=== PATIENT | male | born 1945 | race Caucasian/White ===

== ENCOUNTER 2016-12-17 07:01 | Inpatient (IN) ==
[2016-12-17] MEDS ORDERED: NS 1,000 ML IV ONE ×3 (07:33→22:47)
[2016-12-17] MEDS ORDERED: ZOFRAN IV ONE (07:33)
--- NOTE | 2016-12-17 07:53 | PROVIDER DOCUMENTATION ---
HPI-General Adult - General Chief Complaint: Return/Recheck Stated Complaint: RETURN/RECHECK Time Seen by Provider: 12/17/16 07:03 Source: patient, family Allergies/Adverse Reactions: Patient Allergies Allergy/AdvReac Type Severity Reaction Status Date / Time No Known Allergies Allergy Verified 12/16/16 19:52 Home Medications: Home Medication List Medication Instructions Recorded Confirmed Last Taken Type Levofloxacin [Levaquin] 500 mg PO DAILY #7 tablet 12/16/16 12/17/16 12/16/16 23: 00 Rx Prednisone 15 mg PO BID 12/16/16 12/17/16 12/16/16 08:00 History - History of Present Illness -Gen Adult Nature of Presenting Problems: Pt was seen here last night and was diagnosed mild PNA. Reports he had SOB and shaking after discharged home. Reports PCP, Dr. Gann discontinued his pain and nerve pills after he took them for 2-3 weeks. Pt actually has been having withdrawal type of symptoms since then - shaking, not feeling well etc. Denies N /V/CP/LOC. Pt reports his only current meds is tapering Prednisone. Denies any significant PMHx. Location of Pain/Injury: reports: none Pain Radiation: reports: no radiation Quality of Pain: reports: none Severity: reports: moderate Onset/Duration: reports: 2 days ago Timing: reports: still present, getting worse Context/Activities at Onset: reports: none Modifying Factors: improves with: nothing Associated Symptoms: reports: anxiety, fatigue, malaise, shortness of breath. denies: cough, diarrhea, dizziness, nausea, syncope, vomiting, weakness Similar Symptoms Previously?: Yes Recently seen or treated by another doctor?: Yes Review of Systems - Adult - REVIEW OF SYSTEMS - ADULT Constitutional: reports: see HPI, chills, fever, fatique Eyes: reports: no symptoms reported Ears, Nose, Mouth & Throat: reports: no symptoms reported Cardiovascular: reports: no symptoms reported. denies: chest pain Respiratory: reports: see HPI, shortness of breath. denies: cough, dyspnea on exertion, wheezing Gastrointestinal: reports: no symptoms reported Genitourinary: reports: no symptoms reported Musculoskeletal: reports: no symptoms reported Integumentary: reports: no symptoms reported Neurological: reports: see HPI Psychiatric: reports: no symptoms reported Endocrine: reports: no symptoms reported Hematologic/Lymphatic: reports: no symptoms reported Allergic/Immunologic: reports: no symptoms reported All Other Systems: Reviewed and Negative Past History - Adult - PAST MEDICAL HISTORY-ADULT Review of Records: reports: Old Records Reviewed, Nursing Assessment Review, Medications Reviewed, Social history reviewed & non-contributory. Major Childhood Illnesses: reports: denies history Cardiovascular: reports: HTN, hyperlipidemia - PRIOR SURGERIES/PROCEDURES Surgical/Procedure History: reports: none - IMMUNIZATION STATUS Childhood Immunizations: See Nurse Assessment Flu Vaccine: See Nurse Assessment Physical Exam-General - PHYSICAL EXAM-ADULT Initial Vital Signs Reviewed: Yes - CONSTITUTIONAL General Appearance: appears well, alert, no apparent distress, other (Pt looks tired and pale) - EYES Eyes: PERRL/EOMI - HEAD, EARS, NOSE, MOUTH & THROAT HENMT: normocephalic/atraumatic, moist mucous membranes - NECK Neck: non-tender, full range of motion, supple, normal inspection - RESPIRATORY Respiratory: chest non-tender, lungs clear, normal breath sounds, no pleuratic chest pain, no respiratory distress, no accessory muscle use - CARDIOVASCULAR Cardiovascular: normal peripheral pulses, regular rate, rhythm, no edema, no gallop, no JVD - GASTROINTESTINAL (ABDOMEN) Abdominal Exam: normal bowel sounds, non tender, soft, no organomegaly - MUSCULOSKELETAL Extremity: normal range of motion, non-tender, normal gait, normal inspection - SKIN Integumentary: normal color, normal turgor, warm/dry - NEUROLOGIC Neurologic: sr. director product management II-XII nml as tested, grossly normal, no motor/sensory deficits , abnormal gait - PSYCHIATRIC Psych/Mental Status: normal mood/affect, normal thought content, normal thought process, oriented x 3 Progress - PLAN OF CARE/RESULTS Progress/Plan/Lab Results: Vital Signs - 8 hr 12/17/16 07:12 Temperature 99.1 F Pulse Rate 119 H Respiratory Rate 20 Blood Pressure 124/69 O2 Sat by Pulse Oximetry 98 Orders Category Date Time Status Cardiac Monitoring DIRECTED Care 12/17/16 07:33 Active Saline Loc NOW Care 12/17/16 07:33 Active BLOOD CULTURE [BLDCUL] Stat Lab 12/17/16 07:33 Ordered CBC WITH ELECTRONIC DIFF [HEME] Stat Lab 12/17/16 07:33 Ordered CK PROFILE [SP CHEM] Stat Lab 12/17/16 07:33 Ordered COMPREHENSIVE METABOLIC PANEL [CHEM] Stat Lab 12/17/16 07:33 Ordered D-DIMER PL [COAG] Stat Lab 12/17/16 07:33 Ordered LIPASE [CHEM] Stat Lab 12/17/16 07:33 Ordered MAGNESIUM [CHEM] Stat Lab 12/17/16 07:33 Ordered PRO B-NATRIURETIC PEPTIDE Stat Lab 12/17/16 07:33 Ordered TROPONIN T Stat Lab 12/17/16 07:[address] W/POSS RFLX CULT [URINALYSIS] Stat Lab 12/17/16 07:33 Uncollected URINE DRUG SCREEN PL Stat Lab 12/17/16 07:33 Uncollected 0.9% Sodium Chloride Inj [Ns] 1,000 ml Med 12/17/16 07:33 Active IV 999 mls/hr Ondansetron [Zofran] Med 12/17/16 07:33 Discontinued 4 mg IV NOW ONE EKG [EKG] Stat Ther 12/17/16 07:33 Ordered Result Diagrams: 12/17/16 08:00 12/17/16 08:00 - EKG 1 EKG Read and Signed by:: Orin Metzger EKG Interpretation (*Must complete 3 of following elements*): Abnormal Rate: 120 Rhythm: Sinus tachy [place]: normal QRS: normal ND Interval: normal ST Wave: normal - CT/MRI 1 CT Study: Abdomen, Thorax Impression: Abnormal (L 4th and 5th rib fx. B/l lung base and EL infiltrates. Sigmoid diverticulitis.) Departure - Departure Date of Disposition Decision: 12/17/16 Time of Disposition Decision: 10:58 DIAGNOSIS: Pneumonia, Rib fractures, Diverticulitis Disposition: ADMITTED INPATIENT 09 Certified Medical Emergency: Emergent Condition: Stable Referrals and Follow-Ups: Artur Gann MD [Primary Care Provider] - - Critical Care Note This patient required my direct & personal management of CC.: No
[2016-12-17 08:10] LABS: MANUAL DIFF NEEDED? NO
--- NOTE | 2016-12-17 08:17 | EKG Report ---
Test Performed on : 12/17/2016 08:12:37 AM Test Reason : CHEST PAIN Blood Pressure : / mmHG Vent. Rate : 120 BPM Atrial Rate : 120 BPM P-R Int : 134 ms QRS Dur : 070 ms QT Int : 292 ms P-R-T Axes : 040 021 018 degrees QTc Int : 412 ms Sinus tachycardia. with premature atrial complexes. Otherwise normal ECG No previous ECGs available Unconfirmed Result
[2016-12-17 08:19] LABS: EOS# 0.17 X1000 (0.0-0.7); EOS% 1.7 % (0.0-10.0); HEMATOCRIT 36.6 % (42.0-52.0); HEMOGLOBIN 11.2 g/dL (14.0-18.0); IMM GRAN# 0.06 X1000 (0.0-0.04); IMM GRAN% 0.6 % (0.0-0.5); LYMPH# 1.84 X1000 (1.2-3.4); LYMPH% 18.2 % (20.5-51.1); MCH 21.8 PG (27-31); MCHC 30.6 g/dL (33-37); MCV 71.2 FL (81-99); MONO# 0.57 X1000 (0.11-0.59); MONO% 5.6 % (1.7-9.3); MPV 9.6 FL (7.4-10.4); NEUT% 72.9 % (42.2-75.2); PLT 287 X1000 (130-400); RBC 5.14 XMIL (4.7-6.1)
[2016-12-17 08:45] LABS: ALBUMIN 3.2 g/dL (3.5-5.0); CALCIUM 9.4 mg/dL (8.8-10.2); MAGNESIUM 1.9 mg/dL (1.5-2.7); POTASSIUM 4.4 mmol/L (3.5-5.1); TOTAL BILIRUBIN 0.4 mg/dL (0.20-1.00); TOTAL PROTEIN 7.3 g/dL (6.3-8.3)
[2016-12-17 09:29] LABS: URINE CULTURE PL NEEDED? NO
[2016-12-17 09:38] LABS: BILIRUBIN URINE NEGATIVE (NEGATIVE); BLOOD URINE TRACE (NEGATIVE); CLARITY SL. CLOUDY (CLEAR); COLOR YELLOW; GLUCOSE URINE NEGATIVE (NEGATIVE); LEUKOCYTES URINE NEGATIVE (NEGATIVE); NITRITE URINE NEGATIVE (NEGATIVE); PROTEIN URINE 1+(30 mg/dL) mg/dL (NEGATIVE); UROBILINOGEN URINE NORMAL
[2016-12-17 09:41] LABS: UR AMPHETAMINES QUAL NONE DETECTED (NONE DETECT); UR BARBITUATES QUAL NONE DETECTED (NONE DETECT); UR BENZODIAZEPIN QUAL NONE DETECTED (NONE DETECT); UR CANNABINOIDS QUAL NONE DETECTED (NONE DETECT); UR COCAINE QUAL NONE DETECTED (NONE DETECT); UR MDMA QUAL NONE DETECTED (NONE DETECT); UR METHADONE QUAL NONE DETECTED (NONE DETECT); UR METHAMPHETAMINE QUAL NONE DETECTED (NONE DETECT); UR OPIATES QUAL NONE DETECTED (NONE DETECT); UR OXYCODONE QUAL PRESUMPTIVE POSITIVE (NONE DETECT); UR PCP QUAL NONE DETECTED (NONE DETECT); UR TCA QUAL NONE DETECTED (NONE DETECT)
[2016-12-17 09:51] LABS: URINE EPITHELIAL CELLS <10 /HPF (<10); URINE RBC <10 /HPF (<10); URINE SOURCE CLEAN CATCH; URINE WBC <10 /HPF (<10)
--- NOTE | 2016-12-17 10:29 | Diag Imaging Result Doc PS360 ---
EXAM: ABD/PELVIS/PULM ARTERIES INDICATION: Hurting all over with elevated D-dimer COMPARISON: None. FINDINGS: CTA CHEST: There is excessive motion artifact at the lung bases, which limits fine details as well as sensitivity for detecting small distal pulmonary emboli. However, there is no definite filling defect to indicate pulmonary embolism. There is patchy aortic atherosclerotic calcification. There is no evidence of aortic dissection or aneurysm. There are a few calcified mediastinal and left hilar lymph nodes indicating prior granulomatous disease. There are a few other shotty noncalcified lymph nodes that are borderline prominent. There is bilateral pulmonary emphysema. There are fibrotic changes bilaterally with a basilar predominance. Superimposed airspace infiltrate at the lung bases as well as the lower aspect of the right upper lobe cannot be excluded. There are a few small scattered pulmonary nodules bilaterally. For reference, there is a pulmonary nodule in the right middle lobe that measures up to 5.9 mm on image 65 of series 7. Consider follow-up based on Fleischner Society criteria. There are no discrete pleural fluid collections and there is no pneumothorax. Review of the bony structures of the chest reveals nondisplaced fractures involving the anterior fourth and fifth ribs on the left. ABDOMEN/PELVIS: There are calcified granulomata in the spleen. There are few small renal cysts bilaterally. The kidneys are grossly unremarkable, otherwise. The gallbladder is grossly unremarkable. There is no evidence of appendicitis. Urinary bladder is nondistended. There is moderate diverticulosis coli. There is a focal segment of the proximal sigmoid colon with mild surrounding inflammatory stranding that appears to be emanating from a diverticulum. This indicates a very mild acute diverticulitis. There is no evidence of abscess or free abdominal gas to indicate perforation. There is no bowel obstruction. There is no free fluid. There is extensive aortoiliac atherosclerotic disease and there is an infrarenal abdominal aortic aneurysm measuring up to 3.8 x 3.7 cm axially. The remainder of the solid viscera of the abdomen and pelvis and the remainder of the GI tract are essentially unremarkable. The bony structures of the abdomen and pelvis are grossly intact. IMPRESSION: 1.Nondisplaced fractures involving the anterior fourth and fifth ribs on the left. 2.No definite pulmonary embolism given the limitations of motion artifact. 3.Emphysema and fibrotic changes. 4.Possible superimposed infiltrates at the lung bases and inferior aspect of the right upper lobe. 5.Several small subcentimeter lung nodules. Please see above discussion. 6.Findings suggestive of mild sigmoid diverticulitis with no evidence of perforation. 7.Infrarenal abdominal aortic aneurysm. 8.Other incidental/nonacute findings detailed above. Electronically signed by Michi Voss 12/17/2016 10:27 AM
[2016-12-17] MEDS ORDERED: MORPHINE IV ONE (10:45)
[2016-12-17] MEDS ORDERED: LEVAQUIN 750 MG/D5W 750 MG/150 ML IVPB IV ONE (10:45)
[2016-12-17] MEDS ORDERED: FLAGYL 500 MG/NS 500 MG/100 ML IVPB IV ONE (10:45)
[2016-12-17] MEDS ORDERED: FLAGYL 500 MG/NS 500 MG/100 ML IVPB IV SCH (13:15)
[2016-12-17] MEDS ORDERED: LEVAQUIN 750 MG/D5W 750 MG/150 ML IVPB IV SCH (13:30)
--- NOTE | 2016-12-17 17:27 | Extremity Venous Study ---
EXAM: Venous U/S Bilateral Legs HISTORY: Elevated D-dimer TECHNIQUE: Compression venous ultrasound with color Doppler both lower extremities COMMENT: The deep veins of the lower extremities are compressible and demonstrate normal color Doppler flow with augmentation. IMPRESSION: No evidence of deep venous thrombosis. Electronically signed by Jesús Sunshine 12/17/2016 5:24 PM
[2016-12-17] MEDS: FLAGYL 500 MG/NS 500 MG/100 ML IVPB IV SCH (18:32)
[2016-12-17] MEDS ORDERED: SOLU-MEDROL IV ONE (21:53)
[2016-12-17] MEDS ORDERED: ZOSYN 3.375 GM/NS 3.375 GM/50 ML IVPB IV ONE (22:05)
[2016-12-17] MEDS: PERCOCET-10 PO PRN (22:20)
[2016-12-17] MEDS: ZOFRAN IV PRN (22:34)
[2016-12-18] MEDS: FLAGYL 500 MG/NS 500 MG/100 ML IVPB IV SCH ×3 (02:11→18:07)
[2016-12-18] MEDS: NS 1,000 ML IV SCH ×4 (03:13→21:51)
[2016-12-18] MEDS: SOLU-MEDROL IV SCH ×3 (06:36→18:06)
[2016-12-18] MEDS: PERCOCET-10 PO PRN (06:37)
[2016-12-18] MEDS: LEVAQUIN 750 MG/D5W 750 MG/150 ML IVPB IV SCH (09:54)
[2016-12-18] MEDS ORDERED: MOVANTIK PO ONE (13:30)
[2016-12-18 13:39] LABS: BASO% 0.2 % (0.0-0.8); HEMATOCRIT 28.9 % (42.0-52.0); HEMOGLOBIN 8.5 g/dL (14.0-18.0); IMM GRAN# 0.05 X1000 (0.0-0.04); IMM GRAN% 0.8 % (0.0-0.5); LYMPH% 12.5 % (20.5-51.1); MANUAL DIFF NEEDED? NO; MCH 21.3 PG (27-31); MCHC 29.4 g/dL (33-37); MCV 72.3 FL (81-99); MONO# 0.12 X1000 (0.11-0.59); MONO% 1.9 % (1.7-9.3); MPV 8.9 FL (7.4-10.4); NEUT% 84.6 % (42.2-75.2); PLT 204 X1000 (130-400)
[2016-12-18 14:02] LABS: AGAP 12; ALBUMIN 2.6 g/dL (3.5-5.0); ALKALINE PHOSPHATASE 99 U/L (32-122); BUN 26 mg/dL (8-22); CALCIUM 8.5 mg/dL (8.8-10.2); CHLORIDE 95 mmol/L (98-107); COSMO 270; GOT 15 U/L (10-34); GPT 37 U/L (10-44); SODIUM 129 mmol/L (136-145); TCO2 23 mmol/L (25-35); TOTAL PROTEIN 5.9 g/dL (6.3-8.3)
[2016-12-18] MEDS: ZOSYN 3.375 GM/NS 3.375 GM/50 ML IVPB IV SCH ×2 (15:06→21:51)
[2016-12-19] MEDS: ZOSYN 3.375 GM/NS 3.375 GM/50 ML IVPB IV SCH ×4 (00:26→18:38)
[2016-12-19] MEDS: SOLU-MEDROL IV SCH ×4 (00:26→18:37)
[2016-12-19] MEDS: PERCOCET-10 PO PRN ×2 (00:32→20:23)
[2016-12-19] MEDS: NS 1,000 ML IV SCH ×3 (02:13→23:17)
[2016-12-19] MEDS: FLAGYL 500 MG/NS 500 MG/100 ML IVPB IV SCH ×3 (02:38→20:15)
[2016-12-19] MEDS: MOVANTIK PO SCH (06:43)
[2016-12-19] MEDS: LEVAQUIN 750 MG/D5W 750 MG/150 ML IVPB IV SCH (10:03)
[2016-12-19] MEDS ORDERED: CALMOSEPTINE OINTMENT TOP PRN (15:25)
--- NOTE | 2016-12-19 17:53 | Diag Imaging Result Doc PS360 ---
EXAM: CHEST-2 VIEWS HISTORY: PNA RIB FRACTURES TECHNIQUE: COMPARISON: 12/16/2016 FINDINGS: The lungs are well expanded. The heart is not enlarged. The vessels are not distended. There are increased interstitial markings throughout the lungs. No consolidation. No pleural effusions. IMPRESSION: Stable chest. Electronically signed by Ciro Hernandez 12/19/2016 5:50 PM
[2016-12-20] MEDS: SOLU-MEDROL IV SCH ×4 (00:14→18:05)
[2016-12-20] MEDS: ZOSYN 3.375 GM/NS 3.375 GM/50 ML IVPB IV SCH ×4 (01:09→21:29)
[2016-12-20] MEDS: FLAGYL 500 MG/NS 500 MG/100 ML IVPB IV SCH ×3 (04:05→21:29)
[2016-12-20] MEDS: PERCOCET-10 PO PRN ×2 (04:05→21:28)
[2016-12-20] MEDS: MOVANTIK PO SCH (06:23)
[2016-12-20] MEDS: NS 1,000 ML IV SCH ×5 (06:51→21:28)
[2016-12-20] MEDS: LEVAQUIN 750 MG/D5W 750 MG/150 ML IVPB IV SCH (10:38)
[2016-12-20 14:58] LABS: HEMATOCRIT 27.8 % (42.0-52.0); HEMOGLOBIN 8.1 g/dL (14.0-18.0); MCHC 29.1 g/dL (33-37); MCV 72.2 FL (81-99); MPV 10.1 FL (7.4-10.4); RBC 3.85 XMIL (4.7-6.1)
[2016-12-20 15:04] LABS: AGAP 13; ALBUMIN 2.5 g/dL (3.5-5.0); ALKALINE PHOSPHATASE 88 U/L (32-122); BUN 28 mg/dL (8-22); CALCIUM 8.4 mg/dL (8.8-10.2); CHLORIDE 103 mmol/L (98-107); COSMO 284; GOT 14 U/L (10-34); GPT 33 U/L (10-44); SODIUM 136 mmol/L (136-145); TCO2 20 mmol/L (25-35); TOTAL BILIRUBIN < 0.15 mg/dL (0.20-1.00); TOTAL PROTEIN 5.2 g/dL (6.3-8.3)
[2016-12-21] MEDS: SOLU-MEDROL IV SCH ×3 (01:36→17:55)
[2016-12-21] MEDS: ZOSYN 3.375 GM/NS 3.375 GM/50 ML IVPB IV SCH ×3 (01:37→13:32)
[2016-12-21] MEDS: FLAGYL 500 MG/NS 500 MG/100 ML IVPB IV SCH (04:21)
[2016-12-21] MEDS: MOVANTIK PO SCH (06:49)
[2016-12-21] MEDS: NS 1,000 ML IV SCH (09:19)
[2016-12-21] MEDS ORDERED: LEVAQUIN PO SCH (10:00)
[2016-12-21] MEDS: FLAGYL PO SCH ×2 (13:32→21:41)
[2016-12-21 18:21] LABS: BASO% 0.1 % (0.0-0.8); HEMATOCRIT 29.5 % (42.0-52.0); IMM GRAN# 0.08 X1000 (0.0-0.04); IMM GRAN% 0.9 % (0.0-0.5); LYMPH# 1.37 X1000 (1.2-3.4); LYMPH% 15.8 % (20.5-51.1); MANUAL DIFF NEEDED? YES; MCH 21.8 PG (27-31); MCHC 30.5 g/dL (33-37); MCV 71.6 FL (81-99); MONO# 0.53 X1000 (0.11-0.59); MONO% 6.1 % (1.7-9.3); MPV 9.9 FL (7.4-10.4); NEUT% 77.1 % (42.2-75.2); PLT 298 X1000 (130-400); RBC 4.12 XMIL (4.7-6.1)
[2016-12-21 18:27] LABS: AGAP 14; ALBUMIN 2.7 g/dL (3.5-5.0); ALKALINE PHOSPHATASE 99 U/L (32-122); BUN 26 mg/dL (8-22); CALCIUM 8.6 mg/dL (8.8-10.2); CHLORIDE 106 mmol/L (98-107); COSMO 294; GOT 31 U/L (10-34); GPT 47 U/L (10-44); POTASSIUM 3.6 mmol/L (3.5-5.1); SODIUM 141 mmol/L (136-145); TCO2 21 mmol/L (25-35); TOTAL PROTEIN 5.8 g/dL (6.3-8.3)
[2016-12-21 18:40] LABS: BANDS 1 % (0-1); LYMPHS 17 % (21-51); MONO 5 % (1-9); NRBC 1 % (0-0)
--- NOTE | 2016-12-21 18:42 | Diag Imaging Result Doc PS360 ---
EXAM: CHEST-2 VIEWS HISTORY: PNA/RIB FRACTURES TECHNIQUE: COMPARISON: 12/19/2016 FINDINGS: There are increased interstitial markings in the lower lungs. Heart is not enlarged. No pleural effusions. Mild increased AP diameter to the chest. The apices remain clear. IMPRESSION: No interval change. Electronically signed by Ciro Hernandez 12/21/2016 6:40 PM
[2016-12-21] MEDS: LOVENOX SUBQ SCH (21:41)
[2016-12-22] MEDS: SOLU-MEDROL IV SCH ×3 (01:46→17:48)
[2016-12-22] MEDS: MOVANTIK PO SCH (06:05)
[2016-12-22] MEDS: FLAGYL PO SCH ×3 (06:05→23:29)
[2016-12-22] MEDS: LEVAQUIN PO SCH (10:07)
[2016-12-22] MEDS ORDERED: AMBIEN PO ONE (13:27)
[2016-12-22] MEDS: LOVENOX SUBQ SCH (23:29)
[2016-12-23] MEDS: SOLU-MEDROL IV SCH ×2 (02:35→12:25)
[2016-12-23] MEDS: MOVANTIK PO SCH (06:01)
[2016-12-23] MEDS: FLAGYL PO SCH ×3 (06:01→21:36)
[2016-12-23] MEDS: LEVAQUIN PO SCH (08:44)
[2016-12-23] MEDS ORDERED: LASIX IV ONE (16:25)
[2016-12-23] MEDS ORDERED: AMBIEN PO PRN (16:25)
[2016-12-23] MEDS ORDERED: SOLU-MEDROL IV SCH (16:26)
[2016-12-23] MEDS: ZOFRAN IV PRN (18:43)
[2016-12-23] MEDS ORDERED: CATAPRES PO ONE (21:19)
[2016-12-23] MEDS: PREDNISONE PO SCH (21:21)
[2016-12-23] MEDS: LOVENOX SUBQ SCH (21:22)
[2016-12-23] MEDS ORDERED: DUONEB (A & A) INH ONE (21:25)
[2016-12-23] MEDS ORDERED: ATIVAN IV ONE (21:26)
[2016-12-23 22:09] LABS: BASO% 0.2 % (0.0-0.8); EOS# 0.06 X1000 (0.0-0.7); EOS% 0.5 % (0.0-10.0); HEMATOCRIT 34.2 % (42.0-52.0); HEMOGLOBIN 10.4 g/dL (14.0-18.0); IMM GRAN# 0.21 X1000 (0.0-0.04); IMM GRAN% 1.9 % (0.0-0.5); LYMPH% 19.9 % (20.5-51.1); MANUAL DIFF NEEDED? YES; MCH 21.4 PG (27-31); MCHC 30.4 g/dL (33-37); MCV 70.4 FL (81-99); MONO# 0.63 X1000 (0.11-0.59); MONO% 5.7 % (1.7-9.3); MPV 9.5 FL (7.4-10.4); NEUT% 71.8 % (42.2-75.2); PLT 408 X1000 (130-400); RBC 4.86 XMIL (4.7-6.1)
[2016-12-23 22:30] LABS: AGAP 12; ALBUMIN 3.3 g/dL (3.5-5.0); ALKALINE PHOSPHATASE 93 U/L (32-122); BUN 22 mg/dL (8-22); CHLORIDE 102 mmol/L (98-107); COSMO 284; GOT 29 U/L (10-34); GPT 56 U/L (10-44); SODIUM 141 mmol/L (136-145); TCO2 27 mmol/L (25-35); TOTAL PROTEIN 6.4 g/dL (6.3-8.3)
[2016-12-23 23:08] LABS: LYMPHS 10 % (21-51); MONO 3 % (1-9)
[2016-12-24] MEDS: MOVANTIK PO SCH (06:10)
[2016-12-24] MEDS: FLAGYL PO SCH ×3 (06:10→21:06)
--- NOTE | 2016-12-24 07:15 | Diag Imaging Result Doc PS360 ---
EXAM: CHEST-2 VIEWS HISTORY: PNA TECHNIQUE: 12/21/2016 COMPARISON: None. FINDINGS: The lungs are hyperexpanded. The heart is not enlarged. The vessels are not distended. Mild increased interstitial markings in the lungs believed to be fibrosis. No consolidation.. No pleural effusions. IMPRESSION: I believe the patient has emphysema and fibrosis. Electronically signed by Ciro Hernandez 12/24/2016 7:13 AM
[2016-12-24] MEDS: PREDNISONE PO SCH ×2 (08:36→21:06)
[2016-12-24] MEDS: LEVAQUIN PO SCH (08:36)
[2016-12-24] MEDS: ZOFRAN IV PRN (12:02)
[2016-12-24] MEDS ORDERED: SOLU-MEDROL IV ONE (14:42)
[2016-12-24] MEDS ORDERED: PHENERGAN IV ONE ×2 (14:47→15:15)
[2016-12-24] MEDS ORDERED: SODIUM CHLORIDE 0.9% INJ ONE ×2 (14:47→15:15)
--- NOTE | 2016-12-24 17:57 | Diag Imaging Result Doc PS360 ---
EXAM: ABDOMEN/PELVIS W/CONTRAST HISTORY: Abdominal Pain TECHNIQUE: COMPARISON: 12/17/2016 FINDINGS: The upper abdomen is not included on the exam: No calcified gallstones or adjacent inflammation. No focal hepatic abnormality. Normal spleen, pancreas, and adrenal glands. There are several renal cysts. No solid renal mass. No hydronephrosis. Prominent atherosclerosis. 3.9 cm distal abdominal aortic aneurysm. No bowel obstruction. There are scattered diverticula. No evidence of diverticulitis. No free air. No abscess. The urinary bladder is moderately distended. The prostate is not enlarged. IMPRESSION: 1.No evidence of diverticulitis 2.Renal cysts 3.Small abdominal aortic aneurysm Electronically signed by Ciro Hernandez 12/24/2016 5:55 PM
[2016-12-24 18:57] LABS: HEMATOCRIT 31.3 % (42.0-52.0); HEMOGLOBIN 9.5 g/dL (14.0-18.0); MCH 21.5 PG (27-31); MCHC 30.4 g/dL (33-37); MCV 70.8 FL (81-99); MPV 9.2 FL (7.4-10.4); RBC 4.42 XMIL (4.7-6.1)
[2016-12-24 19:08] LABS: AGAP 10; ALBUMIN 2.9 g/dL (3.5-5.0); ALKALINE PHOSPHATASE 83 U/L (32-122); BUN 22 mg/dL (8-22); CALCIUM 8.4 mg/dL (8.8-10.2); CHLORIDE 98 mmol/L (98-107); COSMO 276; GOT 18 U/L (10-34); GPT 37 U/L (10-44); POTASSIUM 4.1 mmol/L (3.5-5.1); SODIUM 136 mmol/L (136-145); TCO2 28 mmol/L (25-35)
[2016-12-24] MEDS: LOVENOX SUBQ SCH (19:23)
[2016-12-24] MEDS ORDERED: ATIVAN IV ONE (20:06)
--- NOTE | 2016-12-24 20:55 | Diag Imaging Result Doc PS360 ---
EXAM: ANGIOGRAM/PULMONARY ARTERIES HISTORY: rule out PE TECHNIQUE: COMPARISON: 12/17/2016 FINDINGS: No thoracic aortic aneurysm or dissection. Normal opacification of the pulmonary arteries and their major branches. Small mediastinal lymph nodes and hilar lymph nodes are unchanged. Mild emphysematous changes. There are increased interstitial markings believed to be fibrosis. No consolidation. There is a small amount of bronchiectasis posteriorly in the left upper lobe. No change in the nondisplaced left anterior rib fractures. No pneumothoraces. IMPRESSION: No pulmonary emboli. No definite change compared to prior exam. Electronically signed by Ciro Hernandez 12/24/2016 8:52 PM
[2016-12-25] MEDS: MOVANTIK PO SCH (06:01)
[2016-12-25] MEDS: PREDNISONE PO SCH ×2 (09:10→21:03)
[2016-12-25] MEDS: LEVAQUIN PO SCH (09:10)
[2016-12-25] MEDS: LOVENOX SUBQ SCH (19:39)
[2016-12-26] MEDS: MOVANTIK PO SCH (06:19)
[2016-12-26] MEDS: LEVAQUIN PO SCH (09:02)
[2016-12-26] MEDS: PREDNISONE PO SCH (09:02)
[2016-12-26 11:50] VITALS: BP 122/79
--- NOTE | 2017-01-11 07:08 | HISTORY AND PHYSICAL ---
HISTORY OF PRESENT ILLNESS: He actually presented on 12/16/2016 with a complaint of having had a fall associated with some pain in his right side of his chest. He had an initial rib detail done which showed no definite fractures. There was a question as to whether there were increased interstitial markings. The ER doctor gave him some Rocephin and he was discharged only to return the next day, still complaining of more or less the same. He had abdominal/pelvic CT which revealed there were nondisplaced fractures involving the anterior 4th and 5th ribs on the left. No embolus, severe emphysema, fibrotic changes, possible superimposed infiltrate at the lung bases and the inferior aspect of the right upper lobe. There were some nonspecific small subcentimeter lung nodules. There were findings suggestive of mild sigmoid diverticulitis with no evidence of perforation. There was an infrarenal abdominal aortic aneurysm and it measured 3.8 x 3.7. He was admitted. He also was noted to have a study on his legs which was negative for blood clots. His other underlying problem is that he has a probable polymyalgia rheumatica. He had been given the Rocephin on 12/16/2016 and was discharged home but he continued to be short of breath and was shaking at home. The ER doctor thought it may be that he was with throwing from his medicines that he did not take with any great regularity anyhow and was generally not feeling well. Denying nausea, vomiting, chest pain. His only current medications is a tapering prednisone dose that he has been tapering. When he was admitted from the ER on this particular time, his temperature was 99 degrees, pulse was 119, respiratory rate was 20, blood pressure 124/69, and O2 saturation was 98. His comprehensive metabolic panel was sodium 133, potassium 4.4, chloride 93, CO2 26, BUN 37, creatinine 1.4, glucose 111. His white count was on steroids, hematocrit was 36.6, platelet count was 287,000. His EKG was sinus tachycardia, 120, otherwise negative. He had the CT studies and the venous studies as previously described. He was admitted with diverticulitis, rib fractures, and possible pneumonia. Medications are prednisone 50 mg p.o. b.i.d. and he was just recently given levofloxacin the night before 500 mg, a prescription for 7 of these tablets which he had gotten one. These symptoms of his began approximately 2 days prior to his presentation. The question is whether this represents a too abrupt prednisone taper with some exposure of underlying polymyalgia rheumatica or an infectious etiology suggested by the CT that suggested maybe some pneumonitis versus fibrotic lung disease. He really was not coughing that much and possible diverticulitis which he has never had previously. REVIEW OF SYSTEMS: Constitutional: He has been having chills, fatigue, weakness, plus/minus fever. Eyes: No change in his visual acuity. No issues of eye irritation. Ears/Nose/Throat: No pharyngitis, sinusitis, or otitis. Cardiovascular: He has been having chest pain but it is more connected to his ribs, I presume. He denies any palpitations. He denies PND. He denies orthopnea. He has simply been short of breath. He denies any claudication. Respiratory: He has been short of breath as previously described. Had some pain in his chest on the left where he presumably fractured his ribs when he fell against a boiler. He was not wheezing. He was not coughing. Gastrointestinal: He denies nausea, vomiting, diarrhea, constipation, melena, hematochezia, hematemesis. Genitourinary: No polyuria or hematuria. No frequency. No dribbling. No inguinal hernias. Musculoskeletal: He has had general body aches, most particularly in his ribcage but generally everywhere. Skin: No significant rash, pruritus, or skin lesions. Neurological: He has no focal neurological deficits. Denies headaches or seizure. Endocrine: He denies any history of diabetes, thyroid. No polyuria, polydipsia, or polyphagia. No heat or cold intolerance. Hematological: He denies any blood clot disorder, bleeding disorder, anemia, or leukemia. Allergies: No asthma, hayfever, eczema. PAST MEDICAL HISTORY: He has been treated in the office for years for hypertension and dyslipidemia. 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 PAST SURGICAL HISTORY: He has no history of any surgeries. PHYSICAL EXAMINATION: VITAL SIGNS: At the time of this admission, he had a temperature of 99 degrees, pulse was 119, respiratory rate 20, BP 124/69. HEENT: Head was normocephalic. He has some facial fullness associated with his recent history of taking steroids for a period of time. Eyes were PERRLA. EOMs intact. Sclerae clear. Fundi benign. Nares patent. Oropharynx negative. NECK: Supple. Bounding carotids without thyromegaly or lymphadenopathy. Midline trachea. CHEST: Bilateral rhonchi. Otherwise negative. He is tender in the anterior chest wall. CARDIOVASCULAR: He had a regular rhythm and rate. No murmurs, gallops, clicks, or rubs. ABDOMEN: Soft. No hepatosplenomegaly. No CVA tenderness. EXTREMITIES: Negative for clubbing, cyanosis, or edema. NEUROLOGICAL: Intact. ADMITTING DIAGNOSES: 1. Left-sided chest pain associated with 2 rib fractures, possible pneumonitis, possible diverticulitis. 2. History of polymyalgia rheumatica, currently on a steroid taper. cc: Artur Gann MD
--- NOTE | 2017-01-11 07:26 | DISCHARGE SUMMARY ---
ADMISSION DATE: 12/17/2016 DISCHARGE DATE: 12/26/2016 HISTORY OF PRESENT ILLNESS: A patient of mine that I have been following in the office for years with hypertension, background history of smoking, who over the past couple years has developed a rheumatological illness. He has been seen by rheumatologists. They feel that he may have polymyalgia rheumatica. He has been seen here locally in [place] and also in [place]. He has been placed primarily on steroids and is currently on a steroid taper. He has been on steroids for some time. He presented to the ER on 2 successive nights. The 1st night he relays a history on 12/16/2016 of having fallen against a boiler, having rib pain. The initial evaluation was negative. He was felt to have some increase of his interstitial changes in his base and was placed on Rocephin and given a prescription for Levaquin but he continued to do poorly. Presented to the ER the following day where he had extensive CAT scans which revealed some fractured ribs, a small aneurysm, questionable pneumonitis, questionable diverticulitis. Seen in the ER and admitted for the aforementioned conditions. HOSPITAL COURSE: He was placed in the hospital and was receiving IV antibiotics. I was not really positive whether he really had diverticulitis. Question was raised as to whether or not he had a slight adrenal crisis to too rapid of a steroid withdrawal. He was admitted and was hospitalized for several days. We bumped up his steroids. We gave him fluids. Treated him symptomatically. Continued his antibiotics for pain. After giving him IV steroids on 12/18/2016, he began to feel better. He had stable vital signs. His abdomen was distended but it soft and nontender. Chest was clear except for rhonchi. I think he never ran a fever. We switched him over to p.o. Levaquin and Flagyl. He began having soft pitting edema. Blood cultures were negative. We bumped his steroids up to 20 b.i.d. He started feeling better at times during this stay. We did a CTA because of questionable PE. He had marked swelling of his feet. It was negative for PE studies. After having a full course of antibiotics, we ended up discharging him to be followed as an outpatient. cc: Artur Gann MD
== END 2016-12-26 18:20 | disposition home or self-care (01) ==
LOC: P.ED 07:01 → P.MEDSURG 14:24
PROVIDERS: ADMIT Internal Medicine; ATTEND Internal Medicine

== ENCOUNTER 2017-02-03 19:33 | Inpatient (IN) ==
[2017-02-03] MEDS ORDERED: ZOFRAN IV ONE (20:12)
[2017-02-03] MEDS ORDERED: LR 1,000 ML IV PRN (20:13)
[2017-02-03] MEDS ORDERED: VASOTEC IV ONE (20:13)
[2017-02-03] MEDS ORDERED: NITROGLYCERIN TOP ONE (20:14)
--- NOTE | 2017-02-03 20:34 | EKG Report ---
Test Performed on : 02/03/2017 8:20:30 PM Test Reason : CP Blood Pressure : / mmHG Vent. Rate : 092 BPM Atrial Rate : 092 BPM P-R Int : 146 ms QRS Dur : 072 ms QT Int : 344 ms P-R-T Axes : 063 044 070 degrees QTc Int : 425 ms Sinus rhythm. with premature atrial complexes. with aberrant conduction. Nonspecific ST and T wave abnormality Abnormal ECG When compared with ECG of 24-JAN-2017 13:59, premature ventricular complexes. are no longer present aberrant conduction. is now present ST elevation now present in Inferior leads Nonspecific T wave abnormality now evident in Anterior leads Unconfirmed Result
[2017-02-03 20:35] LABS: BASO% 0.3 % (0.0-0.8); EOS# 0.06 X1000 (0.0-0.7); EOS% 0.7 % (0.0-10.0); HEMATOCRIT 34.1 % (42.0-52.0); HEMOGLOBIN 10.3 g/dL (14.0-18.0); IMM GRAN# 0.03 X1000 (0.0-0.04); IMM GRAN% 0.3 % (0.0-0.5); LYMPH# 1.68 X1000 (1.2-3.4); LYMPH% 18.3 % (20.5-51.1); MANUAL DIFF NEEDED? NO; MCH 21.8 PG (27-31); MCHC 30.2 g/dL (33-37); MCV 72.2 FL (81-99); MONO# 0.54 X1000 (0.11-0.59); MONO% 5.9 % (1.7-9.3); MPV 8.5 FL (7.4-10.4); NEUT% 74.5 % (42.2-75.2); PLT 354 X1000 (130-400); RBC 4.72 XMIL (4.7-6.1)
[2017-02-03 20:54] LABS: AGAP 10; ALBUMIN 2.9 g/dL (3.5-5.0); ALKALINE PHOSPHATASE 120 U/L (32-122); BUN 17 mg/dL (8-22); CALCIUM 9.3 mg/dL (8.8-10.2); CHLORIDE 101 mmol/L (98-107); COSMO 273; GOT 22 U/L (10-34); GPT 73 U/L (10-44); POTASSIUM 4.1 mmol/L (3.5-5.1); SODIUM 136 mmol/L (136-145); TCO2 25 mmol/L (25-35); TOTAL PROTEIN 6.6 g/dL (6.3-8.3)
[2017-02-03] MEDS ORDERED: PEPCID IV ONE (22:44)
[2017-02-03] MEDS ORDERED: MORPHINE IV ONE (22:44)
[2017-02-03] MEDS ORDERED: SODIUM CHLORIDE 0.9% INJ ONE (22:44)
--- NOTE | 2017-02-03 22:58 | PROVIDER DOCUMENTATION ---
This chart was entered by Carolee Ray Scribe, acting as scribe for Tejas Mejía MD. HPI-Abdominal Pain/GI Problem - General Chief Complaint: Constipation Stated Complaint: SOB/"BOWEL LOCKED UP" Time Seen by Provider: 02/03/17 19:58 Source: patient Allergies/Adverse Reactions: Patient Allergies Allergy/AdvReac Type Severity Reaction Status Date / Time No Known Allergies Allergy Verified 01/29/17 19:22 Home Medications: Home Medication List Medication Instructions Recorded Confirmed Last Taken Type Prednisone 15 mg PO BID 12/16/16 12/17/16 01/24/17 History Alprazolam [Xanax] 0.5 mg PO TID PRN #5 tablet 01/24/17 Unknown Rx Canagliflozin [Invokana] 1 tab PO DAILY 01/24/17 01/24/17 01/24/17 History Linaclotide [Linzess] 290 microgm PO DAILY PRN PRN 01/29/17 01/29/17 Unknown History Albuterol 2.5MG/Ipratrop 0.5MG 3 ml INH Q4-6H PRN PRN #60 neb 01/30/17 Unknown Rx [Duoneb] Lorazepam [Ativan] 0.5 mg PO BID #20 tablet 01/30/17 Unknown Rx - History of Present Illness-ABD Nature of Presenting Problems: 71 year old M presents to the ED with a cc of constipation. Pt states that it has been 10-12 days since he has had a normal bowel movement. PT states that he fell and cracked some ribs about 6 weeks ago and states that he has not been able to have a normal bowel movement since the fall. PT is also c/o generalized ABD pain, nausea, and shortness of breath. Abdominal Pain Onset Location: reports: generalized abdomen Quality of Pain: reports: aching Severity in ED: reports: mild Onset/Duration: reports: other (10-12 days) Timing: reports: still present Associated Symptoms: reports: nausea, shortness of breath Last BM: other (10-12 since last good BM) Bruising or Bleeding Gums?: No Similar Symptoms Previously?: No Recently seen or treated by another doctor?: No Review of Systems - Adult - REVIEW OF SYSTEMS - ADULT Constitutional: denies: chills, fever Eyes: reports: no symptoms reported Ears, Nose, Mouth & Throat: reports: no symptoms reported Cardiovascular: reports: no symptoms reported Respiratory: reports: shortness of breath. denies: cough Gastrointestinal: reports: abdominal pain, nausea. denies: diarrhea, vomiting Genitourinary: reports: no symptoms reported Musculoskeletal: reports: no symptoms reported Integumentary: reports: no symptoms reported Neurological: reports: no symptoms reported Psychiatric: reports: no symptoms reported Endocrine: reports: no symptoms reported Hematologic/Lymphatic: reports: no symptoms reported Allergic/Immunologic: reports: no symptoms reported All Other Systems: Reviewed and Negative Past History - Adult - PAST MEDICAL HISTORY-ADULT Review of Records: reports: Nursing Assessment Review, Medications Reviewed Major Childhood Illnesses: reports: denies history Cardiovascular: reports: HTN, hyperlipidemia Gastrointestinal: reports: ulcer Endocrine/Immune: reports: Diabetes - PRIOR SURGERIES/PROCEDURES Surgical/Procedure History: reports: other (skin biopsy's) - IMMUNIZATION STATUS Childhood Immunizations: See Nurse Assessment Flu Vaccine: See Nurse Assessment - SOCIAL HISTORY Smoking: non-smoker Substance Use: none/never Alcohol Use Frequency: never Physical Exam-General - PHYSICAL EXAM-ADULT Initial Vital Signs Reviewed: Yes - CONSTITUTIONAL General Appearance: alert, mild distress - RESPIRATORY Respiratory: chest non-tender, rales (bilaterally) - CARDIOVASCULAR Cardiovascular: normal peripheral pulses, regular rate, rhythm, no edema - GASTROINTESTINAL (ABDOMEN) Abdominal Exam: normal bowel sounds, soft, tenderness (generalized) - SKIN Integumentary: normal color, normal turgor, warm/dry - PSYCHIATRIC Psych/Mental Status: normal mood/affect, normal thought content, normal thought process, oriented x 3 Progress - PLAN OF CARE/RESULTS Progress/Plan/Lab Results: Vital Signs - 8 hr 02/03/17 19:42 Temperature 97.1 F L Pulse Rate 102 H Respiratory Rate 18 Blood Pressure 180/121 O2 Sat by Pulse Oximetry 100 Orders Category Date Time Status ABDOMEN/PELVIS W/CONTRAST [CT] Stat Exams 02/03/17 19:55 Ordered CHEST-2 VIEWS [RAD] Stat Exams 02/03/17 20:16 Ordered BNP [PRO B-NATRIURETIC PEPTIDE] Stat Lab 02/03/17 20:14 Received CBC WITH DIFF [HEME] Stat Lab 02/03/17 20:14 Results CK PROFILE [SP CHEM] Stat Lab 02/03/17 20:14 Received CMP [COMPREHENSIVE METABOLIC PANEL] [CHEM] Stat Lab 02/03/17 20:14 Received TROPONIN T Stat Lab 02/03/17 20:14 Received Enalaprilat [Vasotec] Med 02/03/17 20:13 Discontinued 1.25 mg IV NOW ONE Lactated Ringers Inj [Lr] 1,000 ml Med 02/03/17 20:13 Active IV 100 mls/hr Nitroglycerin Med 02/03/17 20:14 Discontinued 1 inch TOP NOW ONE Ondansetron [Zofran] Med 02/03/17 20:12 Discontinued 4 mg IV NOW ONE EKG [EKG] Stat Ther 02/03/17 20:16 Ordered Result Diagrams: 02/03/17 20:14 02/03/17 20:14 - EKG 1 Time of EKG reading by physician:: 20:20 EKG Read and Signed by:: Tejas Mejía EKG Interpretation (*Must complete 3 of following elements*): Abnormal Rate: 92 Rhythm: sinus rhythm with PACs with aberrant conduction ST Wave: non-specific ST changes - CT/MRI 1 CT Study: Abdomen, Pelvis Impression: Abnormal (ulcer off the posterior aspect of the gastroduodenal junction: Dr. Del Rosario(radiologist)) - CONSULTS/PCP/HOSPITALIST Notification #1 *Consult/PCP/Hospitalist*: Radiologist Time Discussed: 22:26 #2 Consult: Dr. Gann(PCP) Time Discussed: 22:49 Consult Disposition: other (admit to [facility] for GI consult) #3 Consult: Dr. Zamudio(hospitalist) Time Discussed: 22:55 Consult Disposition: Admit Departure - Departure Date of Disposition Decision: 02/03/17 Time of Disposition Decision: 22:58 DIAGNOSIS: Duodenal ulcer hemorrhagic Disposition: ADMITTED INPATIENT 09 Certified Medical Emergency: Emergent Condition: Fair Referrals and Follow-Ups: Artur Gann MD [Primary Care Provider] - - Critical Care Note This patient required my direct & personal management of CC.: No This chart was documented by the indicated scribe, (Carolee Ray Scribe) and accurately reflects the services I performed and decisions made by me, Tejas Mejía MD, as attested by the provider's signature.
[2017-02-03] MEDS ORDERED: NS 1,000 ML IV ONE (22:59)
[2017-02-03] MEDS ORDERED: MORPHINE IV PRN (23:06)
[2017-02-03] MEDS ORDERED: DILAUDID ONE (23:17)
[2017-02-03] MEDS ORDERED: DILAUDID IV ONE (23:32)
[2017-02-03 23:53] LABS: IRON SATURATION 7 %; TIBC 226 ug/dL; TOTAL IRON 16 ug/dL (53-167); UNBOUND IRON 210 ug/dL (112-346)
[2017-02-03 23:54] LABS: HEMOGLOBIN A1C 6.1 % (4.8-6.0)
[2017-02-04] MEDS ORDERED: LINZESS PO PRN (00:48)
[2017-02-04] MEDS ORDERED: XANAX PO PRN (00:48)
[2017-02-04] MEDS: PROTONIX IV SCH ×2 (01:24→12:19)
[2017-02-04] MEDS: NS 1,000 ML IV SCH ×2 (01:25→09:46)
[2017-02-04 05:07] LABS: BASO% 0.7 % (0.0-0.8); EOS# 0.13 X1000 (0.0-0.7); EOS% 1.7 % (0.0-10.0); HEMATOCRIT 31.8 % (42.0-52.0); HEMOGLOBIN 9.6 g/dL (14.0-18.0); IMM GRAN# 0.05 X1000 (0.0-0.04); IMM GRAN% 0.7 % (0.0-0.5); LYMPH# 1.44 X1000 (1.2-3.4); LYMPH% 18.9 % (20.5-51.1); MANUAL DIFF NEEDED? YES; MCHC 30.2 g/dL (33-37); MCV 72.8 FL (81-99); MONO# 0.32 X1000 (0.11-0.59); MONO% 4.2 % (1.7-9.3); MPV 8.2 FL (7.4-10.4); NEUT% 73.8 % (42.2-75.2); PLT 334 X1000 (130-400); RBC 4.37 XMIL (4.7-6.1)
[2017-02-04 05:32] LABS: AGAP 13; BUN 17 mg/dL (8-22); CALCIUM 8.7 mg/dL (8.8-10.2); CHLORIDE 101 mmol/L (98-107); COSMO 274; POTASSIUM 3.6 mmol/L (3.5-5.1); SODIUM 137 mmol/L (136-145); TCO2 23 mmol/L (25-35)
[2017-02-04 05:33] LABS: HDL 24 mg/dL (35-55); LDL 136 mg/dL; TRIGLYCERIDES 165 mg/dL (39-160); VLDL 33 mg/dL
--- NOTE | 2017-02-04 05:47 | Diag Imaging Result Doc PS360 ---
EXAM: CHEST-2 VIEWS HISTORY: sob TECHNIQUE: COMPARISON: 01/30/2017 FINDINGS: The lungs are hyperexpanded. The heart is not enlarged. The vessels are not distended. There are no infiltrates. No pleural effusions. Mild increased interstitial markings in the lower left lung. This is consistent with fibrosis. IMPRESSION: Stable chest. Electronically signed by Ciro Hernandez 02/04/2017 5:45 AM
[2017-02-04] MEDS: HUMALOG SUBQ SCH ×4 (06:50→20:47)
--- NOTE | 2017-02-04 07:36 | Diag Imaging Result Doc PS360 ---
ABDOMEN/PELVIS W/CONTRAST - 02/03/2017 INDICATION: constipaion x 12 days TECHNIQUE: A CT dose reduction protocol was used. COMPARISON: 12/24/2016 FINDINGS: There is new wall thickening of the duodenal bulb. There is an area of focal inflammation here as well, but no definite free air or free fluid. There is no constipation. There is a small amount of primarily liquid stool throughout the colon. No bowel obstruction. Stable small abdominal aortic aneurysm with significant vascular disease. Stable fibrosis and bronchiectasis in the lung bases. Heart size is normal. Solid abdominal organs are unremarkable. Urinary bladder, prostate, and rectum are normal. There are moderate degenerative changes of the spine. No acute or suspicious bony lesion. IMPRESSION: Inflammation of the duodenal bulb, with and areas that is focally more inflamed. This probably represents peptic ulcer disease. No perforation, free air or free fluid. Electronically signed by Geovanny Salazar 02/04/2017 7:33 AM
[2017-02-04 08:21] LABS: BANDS 4 % (0-1); LYMPHS 4 % (21-51); MONO 4 % (1-9)
[2017-02-04 08:22] LABS: HYPOCHROM 2+
--- NOTE | 2017-02-04 08:51 | HISTORY AND PHYSICAL ---
PRIMARY CARE PROVIDER: Dr. Artur Gann. HISTORY OF PRESENT ILLNESS: Mr. Bay is a 71-year-old male with a past medical history of hypertension, hyperlipidemia, tobacco use, and chronic COPD issues. He has been otherwise healthy over his lifetime, has not had any surgeries other than cataract surgery of the right eye. At any rate, he started having difficulties about a week ago with what he thought was constipation. He stated over the past 10-12 days he started having difficulty having normal bowel movements, and over the past 7 days he felt as if he was not going to have any bowel movements. The patient did note that he fell and cracked some ribs about 6 weeks ago and really has not had normal bowel movements since that time. He had generalized abdominal pain, some nausea, and mild shortness of breath related to feeling like his abdomen was distended. He stated that the pain was mostly in the epigastric region. He stated that it was persistent, severe, causing him not to be able to eat and that it was mostly a stabbing or a churning-type feeling in his stomach. He stated that he had taken multiple laxatives and suppositories and finally did have a bowel movement, I believe he said 3 days ago. He stated that it was watery; there were no signs of bleeding; it was not dark in color--it was brown, and that he had hoped that after that time he was going to feel relief; however, he kept having the abdominal pain, so he came into the emergency room tonight. A CT scan was obtained at [facility]'s ER which showed an ulcer of the posterior aspect of the gastroduodenal junction and was transported to [facility] for GI consultation. He will be admitted inpatient to CICU where he will stay at least 48 hours. PAST MEDICAL HISTORY: 1. Hypertension. 2. Hyperlipidemia. 3. Tobacco use. 4. Fall with fractured ribs. SURGICAL HISTORY: 1. Right cataract surgery. 2. Biopsy of skin. FAMILY HISTORY: He states that his parents had diabetes. Otherwise, stated they were healthy. SOCIAL HISTORY: He denies alcohol or illicit drug use or abuse. Did smoke for many years. Quit smoking 7 weeks ago. States he has not been able to smoke since his fall and hospitalization and has essentially quit. ALLERGIES: To morphine causing an unknown reaction. REVIEW OF SYSTEMS: Fourteen-point review of systems conducted with patient, and pertinent positives are listed above in the HPI. All other systems reviewed and found to be negative. PHYSICAL EXAMINATION: VITAL SIGNS: Temp 97.8, pulse 97, respirations 14, blood pressure 122/92, oxygen saturation 100% on 2 L nasal cannula. GENERAL: Very pleasant 71-year-old male sitting in the CICU bed. Answers all questions appropriately. HEENT: Head is atraumatic, normocephalic. Pupils equal round and reactive to light. Extraocular eye movement intact. Sclera is anicteric. Conjunctiva is pale. Oral mucosa is moist. NECK: Neck is supple, no JVD, no thyromegaly. Trachea is midline. No cervical lymphadenopathy. CARDIAC: S1, S2 appreciated. Regular rhythm. No murmurs, gallops, or rubs. LUNGS: Mildly prolonged expiratory phase. No rhonchi, wheezes, rales. Symmetrical rise and fall with respirations. ABDOMEN: Protuberant, soft, nontender. Bowel sounds present in all 4 quadrants, normoactive, no pulsatile mass, no organomegaly. EXTREMITIES: No clubbing, cyanosis, or edema. He has 2+ pedal pulses bilaterally. GENITOURINARY: The patient voids. Otherwise, deferred. NEUROLOGICAL: Alert and oriented x3. Cranial nerves 2-12 grossly intact. DIAGNOSTIC DATA: 1. CT of the abdomen showed an ulcer of the posterior aspect of the gastroduodenal junction. 2. Chest x-ray: Chronic COPD changes, mild cardiomegaly. LABORATORY DATA: WBC 9.18, hemoglobin 10.3, hematocrit 34.1, platelet count 352. Sodium 136, potassium 4.1, chloride 101, carbon dioxide 25, BUN 17, creatinine 1.1, glucose 93. ASSESSMENT AND PLAN: 1. Duodenal ulcer. Will consult Dr. Paris with GI. Will place patient on Protonix 40 mg IV q.12 h. Will give Dilaudid 0.5 mg IV q.4 h. p.r.n. pain as he has a listed allergy for morphine. 2. Hypertension. The patient was given Vasotec 1.25 mg in the emergency room. He has been normotensive since. The patient did not appear to be on any home medications for hypertension. Will monitor. 3. Diabetes mellitus type 2. Will hold Invokana, start sliding scale insulin with before meals and at bedtime fingersticks. 4. Hyperlipidemia. The patient again did not appear to be on a statin. Will check a lipid profile. 5. Macrocytic anemia. The patient appears to have chronic anemia checking back in his old records. Will order anemia profile. Further recommendations per patient's clinical course. cc: MD Artur Clancy MD
[2017-02-04 09:41] LABS: FERRITIN 39 ng/mL (30-400)
[2017-02-04] MEDS: PREDNISONE PO SCH (09:46)
[2017-02-04] MEDS ORDERED: PROTONIX 80 MG in NS 80 ML IV SCH (10:52)
[2017-02-04] MEDS ORDERED: NS 1,000 ML IV SCH (11:03)
[2017-02-04 11:34] LABS: BASO% 0.8 % (0.0-0.8); EOS# 0.13 X1000 (0.0-0.7); EOS% 1.2 % (0.0-10.0); HEMATOCRIT 34.8 % (42.0-52.0); HEMOGLOBIN 10.5 g/dL (14.0-18.0); IMM GRAN# 0.04 X1000 (0.0-0.04); IMM GRAN% 0.4 % (0.0-0.5); LYMPH# 1.11 X1000 (1.2-3.4); LYMPH% 10.5 % (20.5-51.1); MANUAL DIFF NEEDED? YES; MCH 22.1 PG (27-31); MCHC 30.2 g/dL (33-37); MCV 73.1 FL (81-99); MONO% 2.8 % (1.7-9.3); MPV 8.4 FL (7.4-10.4); NEUT% 84.3 % (42.2-75.2); PLT 385 X1000 (130-400); RBC 4.76 XMIL (4.7-6.1)
[2017-02-04 11:38] LABS: AGAP 12; ALBUMIN 2.9 g/dL (3.5-5.0); ALKALINE PHOSPHATASE 117 U/L (32-122); BUN 16 mg/dL (8-22); CALCIUM 8.9 mg/dL (8.8-10.2); CHLORIDE 98 mmol/L (98-107); CK PROFILE 12 U/L (24-204); COSMO 272; GOT 18 U/L (10-34); GPT 58 U/L (10-44); SODIUM 136 mmol/L (136-145); TCO2 26 mmol/L (25-35); TOTAL BILIRUBIN 0.56 mg/dL (0.20-1.00); TOTAL PROTEIN 6.3 g/dL (6.3-8.3)
[2017-02-04 11:45] LABS: ALLEN TEST YES; BLOOD TYPE ARTERIAL; DRAW SITE L RADIAL; METHB 0.9 % (0.0-1.5); O2(CT) 16.6 mL/dL (15.0-23.0); PCO2(98.6) 35 mmHg (35-45); PO2(98.6) 81 mmHg (60-100); SAMPLE BLOOD; SAO2 96.8 % (95.0-100.0); THB 12.5 g/dL (11.5-17.4); pH(98.6) 7.44 (7.35-7.45)
[2017-02-04 11:48] LABS: MODALITY CANNULA
[2017-02-04] MEDS: ATIVAN PO PRN (12:19)
[2017-02-04] MEDS: CYANOCOBALAMIN IM SCH (12:19)
[2017-02-04] MEDS: SODIUM CHLORIDE 0.9% INJ SCH (12:19)
[2017-02-04 12:24] LABS: BANDS 1 % (0-1); EOS 2 % (1-10); LARGE PLATELETS 1+; LYMPHS 9 % (21-51); MONO 3 % (1-9)
--- NOTE | 2017-02-04 12:39 | EKG Report ---
Test Performed on : 02/04/2017 10:39:50 AM Test Reason : chest pain Blood Pressure : / mmHG Vent. Rate : 128 BPM Atrial Rate : 128 BPM P-R Int : 134 ms QRS Dur : 072 ms QT Int : 296 ms P-R-T Axes : 033 029 031 degrees QTc Int : 432 ms Sinus tachycardia. Nonspecific ST abnormality Abnormal ECG When compared with ECG of 03-FEB-2017 20:20, (Unconfirmed) aberrant conduction. is no longer present Nonspecific T wave abnormality now evident in Inferior leads Confirmed by Mecca Yadav MD ([id number]) on 02/04/2017 4:17:39 PM
[2017-02-04] MEDS: CARAFATE LIQUID PO SCH ×2 (13:49→20:47)
--- NOTE | 2017-02-04 15:13 | CONSULTATION ---
DATE OF CONSULTATION: 02/04/2017 INDICATION: Tachycardia. HISTORY OF PRESENT ILLNESS: Mr. Bay is a 71-year-old white male with a history of hypertension, hyperlipidemia, COPD and polymyalgia rheumatica. He presented for evaluation of what sounds like relative shortness of breath as well as constipation. Reportedly over the last 1- 1/2 weeks, he has been having difficulty with constipation. He has tried multiple remedies at home, including several rounds of MiraLAX. This has been facilitated via his primary care physician. He has had little improvement in his overall symptom. Reportedly he fell around 4-6 weeks ago and suffered some rib fractures. He is not aware of any pain medication that he took over that time period. He has not had any recent medication changes. He has reported over the last 4-6 weeks some issues with shortness of breath. He has a difficult time qualifying this. He quit smoking over that time period as well. He is not on home oxygen therapy. He is on chronic home steroids for polymyalgia rheumatica and has not missed any recent doses. Admittedly over the last couple of weeks, he has had a significant decrease in his oral intake secondary to the GI complaints he has been having. No recent bleeding issues. No chest pain. PAST MEDICAL HISTORY: 1. Hypertension. 2. Hyperlipidemia. 3. Previous tobacco abuse. 4. Recent fall with multiple rib fractures. 5. Polymyalgia rheumatica. SOCIAL HISTORY: He is . His is present at the bedside. Quit smoking around 6 weeks ago after a roughly 50 year history. No alcohol or illicit drug use. He denied alcohol on 2 separate occasions and his concurred. FAMILY HISTORY: Significant for diabetes in his parents. REVIEW OF SYSTEMS: A 10-system review of systems is negative except for those mentioned in HPI. PHYSICAL EXAMINATION: Vital signs: He is afebrile. His heart rate during this hospitalization has been in the 90s to low 100s predominantly. His blood pressure most recently is 110/75. During my examination, his heart rate was in the low 100s. Generally: No acute distress. HEENT: Oropharynx is moist. Poor dentition. Eye examination shows pink conjunctivae. White sclerae. Neck: Examination shows no obvious thyromegaly or thyroid tenderness. Cardiovascular: He sounds to be in a regular rhythm with a mildly tachycardic rate. He has no lower extremity edema. He has no obvious murmurs. Chest: Exam sounds relatively clear with some mild rales in the bilateral bases. No increased work of breathing. Abdomen: Soft, nontender, nondistended. He has no obvious organomegaly. Skin: Warm and dry throughout without any rashes. Neurological: He is moving all extremities well. Cranial nerves 2-12 are intact without any sensation deficits. Psychiatric: Alert and oriented, pleasant, normal mood and affect. PERTINENT DATA: He had an abdomen and pelvis CT yesterday demonstrating inflammation of the duodenal bulb with areas that are more focally inflamed. This probably represents a peptic ulcer that has not perforated. He had an EKG on the at 20:20 demonstrating sinus rhythm, rate of 92 beats per minute. No obvious ischemic changes. No obvious previous infarct. His subsequent EKG today at 10:39 a.m. shows sinus tachycardia, rate of 128, beats per minute. No ischemic changes. No evidence for old infarct. His laboratory data shows a white count of 10.6, hematocrit 34.8, platelet count 385,000. His sodium is 136, potassium 4, BUN 16, creatinine 0.9. He has a CK that is low. His troponin has been negative. His LDL is 136. TSH last checked January 12 was unremarkable. He had an ACTH checked January 12 that was low at 1.6. ASSESSMENT: 1. Sinus tachycardia. 2. Presumed peptic ulcer disease. PLAN: Patient is currently undergoing GI evaluation. The patient sinus tachycardia is likely reactive, but as of yet I am unclear of the exact etiology. It could be volume depletion and relative deconditioning secondary to his complaints over the last 6 weeks, including a fall with rib fractures resulting in subsequent shortness of breath as well as constipation he suffered over that time period resulting in decreased oral intake. I would recommend doing an adrenal elevation given his chronic long-term steroids that he is on. I agree with fluid resuscitation. He recently had an echocardiogram that was checked on the of this month that demonstrated no significant valvular abnormalities, a PA pressure of 40 and a normal LV systolic function. His TSH was recently normal. We will continue to follow. I agree with fluids as being administered. I have no further recommendations at this time. cc: Avelino Saeed MD
[2017-02-04] MEDS: ICAR-C PO SCH ×2 (15:34→20:47)
[2017-02-04] MEDS: DULCOLAX PR SCH (20:49)
[2017-02-04] MEDS: DILAUDID IV PRN (21:50)
[2017-02-05] MEDS: NS 1,000 ML IV SCH ×3 (00:36→20:27)
[2017-02-05] MEDS: SODIUM CHLORIDE 0.9% INJ SCH ×2 (00:36→12:58)
[2017-02-05] MEDS: PROTONIX IV SCH ×2 (00:36→12:58)
[2017-02-05] MEDS: CARAFATE LIQUID PO SCH ×4 (02:00→20:27)
[2017-02-05 05:14] LABS: HEMOGLOBIN 8.8 g/dL (14.0-18.0); MCH 21.7 PG (27-31); MCHC 29.3 g/dL (33-37); MCV 74.1 FL (81-99); RBC 4.05 XMIL (4.7-6.1)
[2017-02-05 05:15] LABS: BASO% 0.8 % (0.0-0.8); EOS# 0.22 X1000 (0.0-0.7); EOS% 2.4 % (0.0-10.0); IMM GRAN# 0.04 X1000 (0.0-0.04); IMM GRAN% 0.4 % (0.0-0.5); LYMPH# 1.34 X1000 (1.2-3.4); LYMPH% 14.8 % (20.5-51.1); MANUAL DIFF NEEDED? NO; MONO# 0.39 X1000 (0.11-0.59); MONO% 4.3 % (1.7-9.3); MPV 8.5 FL (7.4-10.4); NEUT% 77.3 % (42.2-75.2); PLT 312 X1000 (130-400)
[2017-02-05 05:20] LABS: AGAP 10; BUN 17 mg/dL (8-22); CALCIUM 8.8 mg/dL (8.8-10.2); CHLORIDE 100 mmol/L (98-107); COSMO 268; POTASSIUM 3.5 mmol/L (3.5-5.1); SODIUM 134 mmol/L (136-145); TCO2 24 mmol/L (25-35)
--- NOTE | 2017-02-05 06:15 | CONSULTATION ---
DATE OF CONSULTATION: 02/04/2017 ADMITTING PHYSICIAN: Dr. Downing. PRIMARY CARE DOCTOR: Dr. Gann. REASON FOR CONSULTATION: Anemia and peptic ulcer disease. HISTORY OF PRESENT ILLNESS: Mr. aBy is a 71-year-old male with a past medical history significant for hypertension, hyperlipidemia, COPD, quit smoking about 7 weeks ago, polymyalgia rheumatica on chronic prednisone for the last 1 year who was admitted on 2016 with symptoms of abdominal pain and abdominal distention, constipation and shortness of breath. According to the patient he has been struggling with constipation for the last 2 weeks. He had tried MiraLAX several rounds and no relief. He came to the ER for abdominal distention and was given GoLYTELY to help open him up. But during this workup he had a CT scan which showed evidence of ulcer in the duodenum. He had been on prednisone for over a year. He denies any excess use of NSAIDs. He has been a chronic smoker but quit about 7 weeks ago. Initially the plan was to do an EGD today but he was noted to be tachycardic with heart rates 130s and complaining of shortness of breath. His cardiac enzymes have been negative. He had a negative chest CT, negative pulmonary arteriogram and negative echo done within the last few months. We consulted Dr. Avelino Saeed for working up his shortness of breath, and tachycardia and we appreciate his consultation. According to his assessment the patient has sinus tachycardia which could be secondary to volume depletion and relative deconditioning and may be part of it is because of panic attacks which he has been having for many years. Since being in the hospital the patient denies any nausea, vomiting, vomiting blood or passing blood in the stools. He has had some bowel movements and GoLYTELY. He was initially scheduled for outpatient to have a colonoscopy by Dr. Gomez tomorrow but that has been canceled for now. PAST MEDICAL HISTORY: Hypertension, hyperlipidemia, previous tobacco abuse, quit 7 weeks ago, recent falls with multiple rib fractures, polymyalgia rheumatica on chronic prednisone, obesity. SOCIAL HISTORY: He is . He has a very supportive at bedside. He quit smoking 7 weeks ago after a 50 pack year history of smoking. No history of alcohol or illicit drug abuse. FAMILY HISTORY: Diabetes in parents. REVIEW OF SYSTEMS: Denies any fevers, rigors, chills, chest pain this morning and does complain of intermittent shortness of breath, and palpitations. Denies any neurologic complaints although he has a known history of panic attacks. He did have a history of nausea and constipation and abdominal pain and abdominal distention which is getting better as he is moving his bowels. Denies any vomiting or passing blood in the stools. MEDICATIONS AT HOME INCLUDE: 1. Prednisone 15 mg p.o. b.i.d. 2. Invokana 1 tablets p.o. daily. 3. Albuterol/ipratropium 3 mL every 4-6 hours needed. 4. Ativan 0.5 mg b.i.d. ALLERGIES: To morphine. MEDICATIONS IN THE HOSPITAL INCLUDE: 1. Albuterol ipratropium. 2. Bisacodyl 10 mg p.o. at bedtime. 3. vitamin b12 1000 mcg IM daily. 4. Dilaudid 0.5 mg IV every 4 hours. 5. Iron C b.i.d. 6. Humalog sliding scale. 7. Linzess 20 mg every day. 8. Ativan 0.5 g p.o. b.i.d. 9. Multivitamins daily. 10. Protonix 40 mg IV b.i.d. 11. Prednisone 50 mg p.o. daily. 12. Sucralfate 1 g every 6 hours[address] He had abdominal CT scan on 02/01/2017 which showed inflammation of the duodenal bulb with an area at that is focally more inflamed. This probably represents peptic ulcer disease. No perforation or free air or free fluid noted. Moderate degenerative changes of the spine. Wall thickening of the duodenal bulb. Chest x-ray done yesterday showed lungs hyperexpanded, fibrosis. Pulmonary arteriogram done on 02/01/2017 which showed normal opacification of the pulmonary arteries and major artery branches. Scattered calcified granuloma and calcified mediastinal nodes noted. Patient has emphysema. He had echocardiogram done on 01/16/2017 which showed normal left ventricular systolic function. Mild degree of aortic and pulmonary regurgitation with trace tricuspid regurgitation. Borderline elevated pulmonary systolic pressure and impaired left ventricle relaxation suggesting diastolic dysfunction. IMPRESSION AND PLAN: 1. Inflammation of the duodenal bulb suggesting peptic ulcer disease on imaging. 2. Polymyalgia rheumatica on chronic prednisone which may have converted the ulcer. 3. Panic attacks. 4. Sinus tachycardia. Shortness of breath, unclear etiology. May be secondary to dehydration. 5. Obesity. 6. Chronic constipation. RECOMMENDATIONS: 1. Continue Hydration with normal saline 100 mL/h. 2. Start clear liquid diet. 3. Start Protonix IV b.i.d. 4. We will start the patient on Carafate 1 g 6 hours. 5. We will start the patient on MiraLAX 17 mg b.i.d. and Dulcolax 10 mg at bedtime. 6. The patient is scheduled for EGD tomorrow under anesthesia. The risks, benefits, indications, alternatives discussed with the patient. The patient may need a colonoscopy at a later date maybe as an inpatient versus outpatient depending on his symptoms. 7. We appreciate Dr. Avelino Saeed's recommendations. 8. We will follow along. I discussed the plan with the patient, the patient's family and all questions were answered. cc: MD Avelino Swatrz MD Dr. Putman Manish Arora, MD [facility]
[2017-02-05] MEDS: HUMALOG SUBQ SCH ×4 (06:35→20:28)
[2017-02-05] MEDS: CENTRUM SILVER PO SCH (08:53)
[2017-02-05] MEDS: ICAR-C PO SCH ×2 (08:53→20:27)
[2017-02-05] MEDS: PREDNISONE PO SCH (08:53)
[2017-02-05] MEDS: CYANOCOBALAMIN IM SCH (08:54)
[2017-02-05] MEDS ORDERED: NS 250 ML ONE (09:32)
[2017-02-05 09:41] LABS: INR 1.03; PROTIME 10.8 Seconds (9.2-11.7)
[2017-02-05] MEDS ORDERED: DIPRIVAN 1% ONE (10:35)
[2017-02-05] MEDS ORDERED: XYLOCAINE-MPF 2% ONE (10:35)
[2017-02-05] MEDS ORDERED: NEO-SYNEPHRINE ONE (11:12)
[2017-02-05] MEDS ORDERED: GOLYTELY PO ONE (14:00)
--- NOTE | 2017-02-05 14:30 | OPERATIVE NOTE ---
PROCEDURE DATE: 02/05/2017 REQUESTING PHYSICIAN: Dr. Zamudio PRIMARY CARE DOCTOR: Artur Gann MD PROCEDURE: Esophagogastroduodenoscopy. PREOPERATIVE DIAGNOSES: 1. Anemia. 2. Abdominal pain. 3. Constipation, severe on admission, which is being treated. 4. Abnormal CAT scan showing ulcer in the duodenum. 5. Reflux disease. 6. Chronic prednisone for a year for polymyalgia rheumatica. POSTOPERATIVE DIAGNOSES: 1. Some food in the esophagus, thick liquid which was suctioned out. 2. Evidence of esophagitis distal esophagus, gastroesophageal junction. 3. Questionable ring at the gastroesophageal junction. We elected not to dilate as the patient has severe esophagitis and hiatal hernia 1-2 cm sliding type. 4. Z-line at 42 cm. 5. Gastritis of the body and antrum. 6. Normal fundus, cardia, incisura. 7. Large ulcer measuring about 4 cm in the anterior wall of the duodenal bulb covering about 30%-40% of circumference of the duodenum. 8. Normal 2nd portion of duodenum. ESTIMATED BLOOD LOSS: None. COMPLICATIONS: None. ANESTHESIA: Monitored anesthesia care by the anesthesiologist. SPECIMEN: None. DESCRIPTION OF PROCEDURE: After informed consent, the patient and family explained the risks, benefits, indications, alternatives of the procedure, the patient prepared for EGD. The patient was brought to the OR. He was turned into the left lateral position. A bite block was placed in patient mouth. After adequate monitored anesthesia care, the EGD scope was introduced through the oral orifice and traversed all the way to the second portion of the duodenum. The esophagus normal in the proximal 3rd. The middle esophagus showed evidence of thick liquid like retained food contents, suctioned out. The underlying mucosa showed evidence of erythema, erosions. It was more severe in the distal esophagus and GE junction suggesting severe esophagitis LA grade 3. The Z-line visualized at 42 cm. There was evidence of a possible Schatzki ring. We elected not to dilate it because of severe inflammation, hiatal hernia of 1-2 cm sliding type was noted and the scope was advanced to the stomach showed evidence of erythema in the body suggesting mild gastritis. Retroflexion of normal fundus, cardia, incisura. The duodenal bulb showed evidence of a large ulcer on the anterior aspect of the duodenal bulb and this was measuring about 4 cm, this covered about 30%-40% of the circumference of the duodenal bulb. There was no evidence of any visible vessel, or clot;this is a cleaned based ulcer. The second portion of the duodenum appeared normal. The air was removed as the scope was withdrawn. The patient tolerated the procedure and currently monitored in the OR in stable condition. I discussed the findings with the patient's family and all questions answered. RECOMMENDATIONS: 1. The patient will be on Protonix twice daily for is 3-6 months. 2. The patient with Carafate 1 g 6 hours for 6 weeks. 3. The patient will be on Iron C b.i.d. for 3 months. 4. The patient will be on Centrum Silver once daily for 3 months. 5. Patient will avoid any NSAIDs. 6. Patient will avoid spicy foods and follow gastroesophageal reflux disease. 7. The patient will try to wean down his prednisone as it will inhibit the healing of the ulcer. 8. The patient will be scheduled for colonoscopy tomorrow by Dr. Gomez. 9. The patient will need repeat EGD in 3-6 months to document healing ulcer. The above plan was discussed with the patient family and all questions answered. cc: MD Liam Ayoub MD Dr. Garcia MTDD
--- NOTE | 2017-02-05 15:53 | PROGRESS NOTE ---
DATE: 02/05/2017 SUBJECTIVE: Mr. Bay is somewhat sleepy. He had his EGD performed today. OBJECTIVE: Vital Signs: He is afebrile. His heart rate is in the 70s to 90s more recently. His blood pressure is 143/85. General: No acute distress. Cardiovascular: He is in a regular rate and rhythm. Currently his telemetry shows low level sinus tach in the low 100s. Chest: Exam is clear bilaterally. No increased work of breathing. Abdomen: Soft, nontender, nondistended. He has no obvious organomegaly. Skin Exam: Warm and dry throughout. PERTINENT DATA: White count is 9, his hematocrit 30, platelet count is 312,00. Chemistry data shows a sodium 134, potassium is 3.5, his BUN is 17, creatinine is 1. ASSESSMENT: 1. Reactive sinus tachycardia. 2. Peptic ulcer disease. PLAN: Would recommend the primary team evaluating for possible adrenal insufficiency. He had a down titration of his chronic steroids a few weeks ago it sounds like, and this could perhaps be related to some relative adrenal insufficiency. He is receiving fluids presently. He has had echoes and TSH is checked recently. Presently I have no further recommendations. Please contact us if we can be of further assistance. cc: Avelino Saeed MD
--- NOTE | 2017-02-05 16:28 | PROGRESS NOTE ---
DATE: 02/05/2017 SUBJECTIVE: The patient is resting comfortably in bed. No acute events noted overnight. OBJECTIVE: Vital Signs: Temperature 98.1 degrees, blood pressure 143/85, heart rate 72, respirations 16, O2 saturations 92% on 2 L nasal cannula. General: This is a morbidly obese male, lying in bed, in no acute distress. Head: Normocephalic, atraumatic. Heart: S1, S2. Normal. Regular rate and rhythm. Lungs: Clear to auscultation bilaterally. No wheezes. No rales. No rhonchi. Abdomen: Positive bowel sounds. Soft, nontender, nondistended. Extremities: No edema. No cyanosis. No calf tenderness. Neurologic: The patient is alert and oriented x3. LABS: White blood cell count 9, hemoglobin 8.8, hematocrit 30, platelets 312,000. Sodium 134, potassium 3.5, chloride 100, CO2 24, BUN 17, creatinine 1, glucose 74. ASSESSMENT AND PLAN: 1. Severe esophagitis. Continue on IV Protonix and Carafate. 2. Anemia. The patient is currently on iron supplementation. Will monitor this closely. 3. Vitamin B12 deficiency. Continue with vitamin D replacement. 4. Chronic steroid usage. Continue on prednisone. 5. Morbid obesity. Aware. 6. Deep vein thrombosis prophylaxis. Continue with SCDs. cc: Raine Downing MD
[2017-02-05] MEDS: ZOFRAN IV PRN (20:26)
[2017-02-05] MEDS: DULCOLAX PR SCH (20:28)
[2017-02-06] MEDS: SODIUM CHLORIDE 0.9% INJ SCH ×3 (00:21→23:20)
[2017-02-06] MEDS: PROTONIX IV SCH ×3 (00:21→23:20)
[2017-02-06] MEDS: CARAFATE LIQUID PO SCH ×4 (01:00→20:27)
[2017-02-06] MEDS: DILAUDID IV PRN ×2 (01:00→23:20)
[2017-02-06 05:30] LABS: BASO% 0.7 % (0.0-0.8); EOS# 0.18 X1000 (0.0-0.7); EOS% 2.5 % (0.0-10.0); HEMATOCRIT 26.6 % (42.0-52.0); IMM GRAN# 0.03 X1000 (0.0-0.04); IMM GRAN% 0.4 % (0.0-0.5); LYMPH# 1.34 X1000 (1.2-3.4); LYMPH% 18.9 % (20.5-51.1); MANUAL DIFF NEEDED? YES; MCH 22.1 PG (27-31); MCHC 30.1 g/dL (33-37); MCV 73.5 FL (81-99); MONO# 0.32 X1000 (0.11-0.59); MONO% 4.5 % (1.7-9.3); MPV 8.3 FL (7.4-10.4); PLT 263 X1000 (130-400); RBC 3.62 XMIL (4.7-6.1)
[2017-02-06 05:41] LABS: AGAP 12; BUN 14 mg/dL (8-22); CALCIUM 7.7 mg/dL (8.8-10.2); CHLORIDE 105 mmol/L (98-107); COSMO 282; POTASSIUM 3.4 mmol/L (3.5-5.1); SODIUM 142 mmol/L (136-145); TCO2 25 mmol/L (25-35)
[2017-02-06] MEDS: HUMALOG SUBQ SCH ×4 (06:03→20:27)
[2017-02-06 07:01] LABS: BANDS 1 % (0-1); LYMPHS 16 % (21-51); MONO 2 % (1-9)
[2017-02-06] MEDS ORDERED: POTASSIUM CHLORIDE 40 MEQ/SWI 40 MEQ/100 ML IVPB IV ONE (07:39)
[2017-02-06] MEDS: ICAR-C PO SCH ×2 (08:16→20:27)
[2017-02-06] MEDS: CENTRUM SILVER PO SCH (08:16)
[2017-02-06] MEDS: PREDNISONE PO SCH (08:16)
[2017-02-06] MEDS: CYANOCOBALAMIN IM SCH (08:17)
[2017-02-06] MEDS ORDERED: NS 0 ML ONE (08:42)
[2017-02-06] MEDS ORDERED: DIPRIVAN 1% ONE ×2 (10:10→11:33)
[2017-02-06] MEDS: NS 1,000 ML IV SCH (12:45)
--- NOTE | 2017-02-06 15:02 | OPERATIVE NOTE ---
PROCEDURE DATE: PROCEDURE: Colonoscopy. PREOPERATIVE DIAGNOSIS: Gastrointestinal bleed. POSTOPERATIVE DIAGNOSIS: 1. Diverticulosis. 2. 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 DESCRIPTION OF PROCEDURE: After informed consent and adequate intravenous sedation by Anesthesia, the scope advanced all the way into the cecum. Patient has a few AVMs in the cecum. There is no bleeding. The entire colon is free of blood. There is scattered diverticulosis present. The scope was withdrawn. The patient tolerated the procedure well without any immediate complications. cc: Graham Gomez MD
--- NOTE | 2017-02-06 19:02 | PROGRESS NOTE ---
DATE: 02/06/2017 SUBJECTIVE: The patient is resting comfortably in bed. No acute events noted overnight. OBJECTIVE: Vital Signs: Temperature 97.6 degrees, blood pressure 124/85, heart rate 105, respirations 20, O2 saturation is 97% on room air. General: This is an elderly male, lying in bed, in no acute distress. Head: Normocephalic, atraumatic. Heart: S1, S2. Normal. Tachycardic. Lungs: Clear to auscultation bilaterally. No wheezing. No rales. No rhonchi. Abdomen: Positive bowel sounds. Soft, nontender, nondistended. Extremities: No edema. No cyanosis. No calf tenderness. Neurologic: The patient is alert and oriented x3. LABS: White blood cell count 7, hemoglobin 8, hematocrit 26, platelets 263,000. Sodium 142, potassium 3.4, chloride 105, CO2 25, BUN 14, creatinine 0.9, glucose 68. ASSESSMENT AND PLAN: 1. Severe esophagitis. Continue on IV Protonix and Carafate. 2. Diverticulosis. Aware. 3. Vitamin B12 deficiency. Continue on vitamin D replacement. 4. Chronic steroid usage. Continue on prednisone. 5. Morbid obesity. Aware. 6. Anemia. We will monitor the patient's hemoglobin and hematocrit and transfuse as needed. 7. Deep vein thrombosis prophylaxis. Continue with SCDs. 8. Will consult physical therapy. cc: Raine Downing MD
[2017-02-06] MEDS: DULCOLAX PR SCH (20:29)
[2017-02-07] MEDS: CARAFATE LIQUID PO SCH ×4 (01:09→20:24)
[2017-02-07 05:40] LABS: HEMATOCRIT 30.1 % (42.0-52.0); MCH 21.8 PG (27-31); MCHC 29.9 g/dL (33-37); MCV 72.9 FL (81-99); MPV 8.8 FL (7.4-10.4); RBC 4.13 XMIL (4.7-6.1)
[2017-02-07 05:57] LABS: AGAP 13; BUN 15 mg/dL (8-22); CALCIUM 8.6 mg/dL (8.8-10.2); CHLORIDE 105 mmol/L (98-107); COSMO 283; POTASSIUM 3.6 mmol/L (3.5-5.1); SODIUM 142 mmol/L (136-145); TCO2 24 mmol/L (25-35)
[2017-02-07] MEDS: HUMALOG SUBQ SCH ×4 (06:06→20:28)
[2017-02-07] MEDS: PREDNISONE PO SCH (08:53)
[2017-02-07] MEDS: ICAR-C PO SCH ×2 (08:53→20:28)
[2017-02-07] MEDS: CENTRUM SILVER PO SCH (08:53)
[2017-02-07] MEDS: CYANOCOBALAMIN IM SCH (08:53)
[2017-02-07] MEDS: VITAMIN D PO SCH (09:04)
[2017-02-07] MEDS ORDERED: PROTONIX IV SCH (10:52)
[2017-02-07] MEDS: PROTONIX IV SCH (13:06)
--- NOTE | 2017-02-07 14:31 | PROGRESS NOTE ---
DATE: 02/07/2017 SUBJECTIVE: The patient is resting comfortably in bed. He ate all of his breakfast this morning. OBJECTIVE: His left upper extremity is swollen and erythematous. The patient is alert and oriented x3. LABS: White blood cell count 9.3, hemoglobin 9, hematocrit 30, platelets 310. Sodium 142, potassium 3.6, chloride 105, CO2 of 24, BUN 15, creatinine 1.1. Glucose 97. ASSESSMENT AND PLAN: 1. Severe esophagitis. Continue on Protonix plus Carafate. 2. Left upper extremity swelling. Will check a venous Doppler to rule out deep vein thrombosis. 3. Vitamin D deficiency. We will continue with vitamin D replacement. 4. Vitamin B12 deficiency. We will continue with vitamin B12 replacement. 5. Polymyalgia rheumatica. Continue on prednisone. 6. Iron deficiency anemia. Continue on iron supplementation. 7. Will consult physical therapy. DISPOSITION: The patient should be stable for discharge in the next 24-48 hours. cc: Raine Downing MD MTDD
[2017-02-07] MEDS: DULCOLAX PR SCH (20:28)
[2017-02-07] MEDS: DILAUDID IV PRN (20:50)
[2017-02-08] MEDS: PROTONIX IV SCH ×2 (01:12→12:56)
[2017-02-08] MEDS: CARAFATE LIQUID PO SCH ×5 (01:12→20:33)
[2017-02-08] MEDS: HUMALOG SUBQ SCH ×4 (06:01→20:33)
[2017-02-08 06:02] LABS: HEMOGLOBIN 8.3 g/dL (14.0-18.0); MCHC 29.6 g/dL (33-37); MCV 74.1 FL (81-99); MPV 8.7 FL (7.4-10.4); RBC 3.78 XMIL (4.7-6.1)
[2017-02-08 06:32] LABS: AGAP 13; BUN 15 mg/dL (8-22); CALCIUM 8.6 mg/dL (8.8-10.2); CHLORIDE 100 mmol/L (98-107); COSMO 278; POTASSIUM 3.3 mmol/L (3.5-5.1); SODIUM 139 mmol/L (136-145); TCO2 26 mmol/L (25-35)
[2017-02-08] MEDS ORDERED: POTASSIUM CHLORIDE 60 MEQ in NS 500 ML IV ONE (06:34)
[2017-02-08] MEDS: ICAR-C PO SCH ×2 (08:11→20:33)
[2017-02-08] MEDS: CENTRUM SILVER PO SCH (08:11)
[2017-02-08] MEDS: PREDNISONE PO SCH (08:11)
[2017-02-08] MEDS: CYANOCOBALAMIN IM SCH (08:11)
[2017-02-08] MEDS: SODIUM CHLORIDE 0.9% INJ SCH (12:56)
--- NOTE | 2017-02-08 15:51 | PROGRESS NOTE ---
DATE: 02/08/2017 SUBJECTIVE: The patient is resting comfortably in bed. He has no complaints today. No acute events noted overnight. He continues to have swelling in his left upper extremity. OBJECTIVE: Vital Signs: Temperature 98 degrees, blood pressure 143/87, heart rate 108, respirations 18, O2 saturations 96% on 2 L nasal cannula. General: This is an elderly male, sitting in a chair in no acute distress. Head: Normocephalic, atraumatic. Heart: S1, S2. Normal. Tachycardic. Lungs: Equal air entry bilaterally. No crackles. No rales. Abdomen: Positive bowel sounds. Soft, nontender, nondistended. Extremities: 2 to 3+ edema in the left upper extremity. Neurologic: The patient is alert and oriented x3. LABORATORY: White blood cell count 6.7, hemoglobin 8.3, hematocrit 28, platelets 254,000. Sodium 139, potassium 3.3, chloride 100, CO2 26, BUN 15, creatinine 1, glucose 92, calcium 8.6. ASSESSMENT AND PLAN: 1. Severe esophagitis. Continue on Protonix and Carafate. 2. Left upper extremity swelling. The venous Doppler was done yesterday. The report is currently pending. 3. Iron deficiency anemia. The patient's hemoglobin and hematocrit is slightly lower today. Continue on iron supplementation. 4. Vitamin D deficiency. Continue with vitamin D replacement. 5. Vitamin B12 deficiency. Continue on vitamin B12 replacement. 6. Polymyalgia rheumatica. Continue on prednisone. 7. Continue with physical therapy. 8. Disposition. The patient states that he might be interested in going to rehab. We will consult social media senior associate to assist with this. cc: Ranie Downing MD
[2017-02-08] MEDS: DULCOLAX PR SCH (20:33)
[2017-02-08] MEDS: DILAUDID IV PRN (21:44)
[2017-02-09] MEDS: CARAFATE LIQUID PO SCH ×4 (01:25→20:49)
[2017-02-09] MEDS: PROTONIX IV SCH ×2 (01:26→11:41)
[2017-02-09 05:52] LABS: HEMATOCRIT 30.9 % (42.0-52.0); HEMOGLOBIN 9.2 g/dL (14.0-18.0); MCHC 29.8 g/dL (33-37); MCV 73.7 FL (81-99); MPV 8.8 FL (7.4-10.4); RBC 4.19 XMIL (4.7-6.1)
[2017-02-09 06:15] LABS: CALCIUM 8.9 mg/dL (8.8-10.2); POTASSIUM 3.9 mmol/L (3.5-5.1)
[2017-02-09] MEDS: HUMALOG SUBQ SCH ×4 (06:30→20:49)
[2017-02-09] MEDS: ZOFRAN IV PRN (06:35)
[2017-02-09] MEDS: DUONEB (A & A) INH PRN ×2 (08:14→15:54)
[2017-02-09] MEDS: DILAUDID IV PRN (08:42)
[2017-02-09] MEDS: ICAR-C PO SCH ×2 (08:43→20:49)
[2017-02-09] MEDS: CENTRUM SILVER PO SCH (08:43)
[2017-02-09] MEDS: PREDNISONE PO SCH (08:43)
[2017-02-09] MEDS: CYANOCOBALAMIN IM SCH (08:43)
[2017-02-09] MEDS ORDERED: NS 1,000 ML IV SCH ×2 (10:37→13:46)
--- NOTE | 2017-02-09 11:25 | Diag Imaging Result Doc PS360 ---
EXAM: CHEST-2 VIEWS HISTORY: Shortness of Breath TECHNIQUE: COMPARISON: 02/03/2017 FINDINGS: The lungs are well expanded. There is a left-sided PICC line. Tip overlies the upper to mid superior vena cava. Heart is not enlarged. No pleural effusions. There are increased interstitial markings in the mid and lower lungs. These are unchanged and may simply be fibrosis. IMPRESSION: Interval placement of a left-sided PICC line, otherwise stable exam. Electronically signed by Ciro Hernandez 02/09/2017 11:23 AM
--- NOTE | 2017-02-09 11:26 | PROGRESS NOTE ---
DATE: 02/09/2017 SUBJECTIVE: Resting in bed. He complains of diffuse pain throughout the body and he has known history of polymyalgia rheumatica. He is on prednisone chronic for years and they are trying to wean him down. He is currently on prednisone 15 mg a day. He denies any nausea, vomiting, or vomiting blood. He has been feeling constipated and bloated. This morning. He had a very small bowel movement this morning. He is requesting a laxative for helping his bowels move. He denies any fevers, rigors, chills. OBJECTIVE: Vital signs: Temperature of 100.4 degrees, pulse rate of 127, respiratory rate of 30, blood pressure 143/111, saturating 97% on 2 L nasal cannula. General Appearance: Moderately built, moderately nourished, lying in bed, in no acute distress. HEENT: Pale conjunctiva. No icterus. Neck is supple. Abdomen: Obese, slightly protuberant. Bowel sounds are present. No guarding or rebound. Extremities: No cyanosis, clubbing, in bilateral lower extremities are noted. Neurologic: He is alert, awake, oriented. LABORATORY DATA: Hemoglobin and hematocrit is 9.2 and 30.9, white count of 8.7, platelet count of 283,000. MCV of 73.7. Sodium 130, potassium 3.9, chloride 101, bicarbonate of 26, anion gap 11, BUN of 17, creatinine 1.2, glucose of 80, calcium 8.9. IMPRESSION/PLAN: 1. Severe esophagitis and large duodenal bulb ulcer. Continue on Protonix and Carafate. 2. He will continue on GI soft diet. 3. We will check KUB x-ray today. This patient has mild abdominal distention and protuberance of the abdomen. 4. Constipation. He is going to continue on Dulcolax 10 mg at bedtime and MiraLAX twice daily. We will give him a dose of soapsuds enema today. 5. Iron deficiency anemia. He will continue on Iron C b.i.d. and multivitamin once daily. 6. Patient has polymyalgia rheumatica. He is on prednisone 15 mg a day. This is being managed by the primary team. 7. Sinus tachycardia likely reactive. Question of anemia, questionable adrenal insufficiency, dehydration. The patient encouraged to drink increased amount of fluids. I discussed that with the patient's family at bedside. 8. Low-grade fever. Unclear etiology. This needs infectious workup per the primary care team. So far the patient is not on any antibiotics. As the patient is on steroids, his risk of infection is higher. This was discussed with the patient and his family and the RN. cc: MD Raine Menard MD Michael L. Putman
--- NOTE | 2017-02-09 11:28 | Diag Imaging Result Doc PS360 ---
EXAM: KUB ABDOMEN HISTORY: evaluate for constipation or obstruction TECHNIQUE: Single view COMPARISON: None. FINDINGS: No free air beneath the diaphragm. No significant constipation. Mild air distended loops of bowel in the mid left abdomen. No organomegaly. No foreign body. IMPRESSION: Mild air distended loops of small bowel in the left abdomen may represent an ileus or partial obstruction. Follow-up films recommended. Electronically signed by Ciro Hernandez 02/09/2017 11:26 AM
[2017-02-09] MEDS ORDERED: LASIX IV ONE (13:47)
[2017-02-09 15:03] LABS: URINE CULTURE NEEDED? NO; URINE MICRO REVIEW NEEDED? NO; URINE SOURCE CLEAN CATCH
[2017-02-09 15:13] LABS: BILIRUBIN URINE NEGATIVE (NEGATIVE); BLOOD URINE NEGATIVE (NEGATIVE); COLOR STRAW; GLUCOSE URINE NEGATIVE (NEGATIVE); LEUKOCYTES URINE NEGATIVE (NEGATIVE); NITRITE URINE NEGATIVE (NEGATIVE); PROTEIN URINE NEGATIVE (NEGATIVE); TURBIDITY URINE CLEAR (CLEAR); UROBILINOGEN URINE NORMAL (NORMAL)
[2017-02-09 15:14] LABS: UR EPITHELIAL CELLS <10 /HPF (<10); URINE BACTERIA NEGATIVE /HPF; URINE RBC <10 /HPF (<10); URINE WBC <10 /HPF (<10)
--- NOTE | 2017-02-09 16:10 | PROGRESS NOTE ---
DATE: 02/09/2017 SUBJECTIVE: The patient has no focal complaints except weakness. OBJECTIVE: Vital Signs: Blood pressure 128/79, heart rate 106, respiratory rate 21 and temperature 97.5 degrees. 98% on 2 L. Cardiovascular: Regular rate and rhythm. Pulmonary: Bilateral breath sounds. Clear to auscultation. Gastrointestinal: Abdomen soft, nontender, nondistended. Bowel sounds are positive. LABORATORY DATA: Normal CMP. Hemoglobin and hematocrit is 9 and 30. Platelets 283,000. White count is normal. T-max was 100.4. PROBLEM LIST: 1. Gastrointestinal bleed secondary to duodenal ulcer. He is on PPI and followed by GI. 2. Left upper extremity swelling. I think he is just third-spacing from fluids. His ultrasound was negative. I am going to stop the fluids. I noted they had been started back today due to some concern over adrenal insufficiency but I think he is getting volume overloaded. 3. In any case, iron-deficiency anemia. Continue to follow hemoglobin and hematocrit. Continue Icar C. 4. Polymyalgia rheumatica. He is on prednisone. 5. Fever. We will obtain urine, chest x-ray, and blood culture and follow closely. Blood cultures have already been obtained. 6. On pulmonary exam he clearly has rales diffusely, so I am actually going to diurese him because I think that is more a concern than otherwise. 7. Disposition: I will continue to monitor him in CI just because I need to get a better sense of what his pulmonary status is and continue to follow. cc: Rogelio Leach MD
[2017-02-09] MEDS: DULCOLAX PR SCH (20:49)
[2017-02-09] MEDS: ATIVAN PO PRN (21:12)
--- NOTE | 2017-02-09 21:35 | Extremity Venous Study ---
PROCEDURE NAME: Venous U/S Left Arm - 02/07/2017 VACUUM DRIER TENDER: Juliocesar. REQUESTING PHYSICIAN: Dr. Downing. INDICATION: Swelling and redness. FINDINGS: The deep and superficial veins in left upper extremity were visualized along their course. All veins appeared compressible with forward flow. No evidence of intraluminal thrombus. Of note, there is a PICC line in the left cephalic vein but no obvious thrombus associated with this. SUMMARY: No deep or superficial venous thrombosis the left upper extremity to explain the swelling. cc: MD Raine Boone MD
--- NOTE | 2017-02-09 23:07 | VASCULAR LAB ---
DATE: 02/09/2017 STUDY: Bilateral lower extremity segmental Doppler exam. MOLD FINISHER: Cory INDICATION: Pain. PRESSURES: Brachial on the right 132. There is a PICC line on the left. High thigh was not examined. Low thigh on the right was 133, on the left 144. Calf pressure on the right is 139, on the left 132. DP on the right is 123, on the left 125. PT on the right is 142, on the left 137. Toe pressure on the right is 99, on the left 107. JEREMIE on the right is 1.08, on the left 1.04. TBI on the right is 0.7, on the left 0.77. IMPRESSION: Normal ABIs bilaterally with maintained waveforms throughout and pulsatile flow to the level of the toes bilaterally. Mild depression in toe brachial index but suspect based on this exam with normal ABIs, this would not correlate to significant pain in the lower extremities. Would recommend correlation with exercise as clinically indicated or angiography. cc: MD Rogelio Boone MD
[2017-02-10] MEDS: DILAUDID IV PRN ×4 (01:20→21:51)
[2017-02-10] MEDS: CARAFATE LIQUID PO SCH ×4 (01:21→21:50)
[2017-02-10] MEDS: SODIUM CHLORIDE 0.9% INJ SCH ×2 (01:21→11:16)
[2017-02-10] MEDS: PROTONIX IV SCH ×2 (01:21→11:17)
[2017-02-10 05:15] LABS: HEMATOCRIT 27.5 % (42.0-52.0); HEMOGLOBIN 8.2 g/dL (14.0-18.0); MCH 21.5 PG (27-31); MCHC 29.8 g/dL (33-37); MPV 8.4 FL (7.4-10.4); RBC 3.82 XMIL (4.7-6.1)
[2017-02-10 05:39] LABS: CALCIUM 8.3 mg/dL (8.8-10.2); POTASSIUM 3.4 mmol/L (3.5-5.1)
[2017-02-10] MEDS: HUMALOG SUBQ SCH ×4 (06:01→21:50)
[2017-02-10] MEDS: DUONEB (A & A) INH PRN ×2 (08:04→11:33)
[2017-02-10] MEDS: CENTRUM SILVER PO SCH (08:25)
[2017-02-10] MEDS: CYANOCOBALAMIN IM SCH (08:25)
[2017-02-10] MEDS: PREDNISONE PO SCH (08:25)
[2017-02-10] MEDS: ICAR-C PO SCH ×2 (08:25→21:50)
[2017-02-10] MEDS: ATIVAN PO PRN (11:16)
[2017-02-10] MEDS ORDERED: LASIX IV ONE (12:10)
[2017-02-10] MEDS: KLOR-CON PO SCH (13:03)
--- NOTE | 2017-02-10 13:29 | PROGRESS NOTE ---
DATE: 02/10/2017 SUBJECTIVE: The patient has no focal complaints. He is still weak of course. OBJECTIVE: Blood pressure 129/65, heart rate of 121, temperature 98.3 degrees, blood pressure 129/65, 94% on 3 L. Cardiovascular: Regular rate and rhythm. Pulmonary: Bilateral breath sounds. Clear to auscultation. GI: Soft, nontender, nondistended. Bowel sounds are positive. LABORATORY DATA: White count 7, hemoglobin and hematocrit 8 and 27, platelets 261,000. Potassium 3.4, creatinine 1.2. PROBLEM LIST: 1. Acute gastrointestinal bleed secondary to duodenal ulcer. Will continue proton pump inhibitor and follow. Hemoglobin and hematocrit stable. There is no further bleeding. 2. Edema of upper diffusely. I think this is related to low albumin and volume overload. We will continue diuresis and follow. 3. Iron-deficiency anemia. He is stable on Icar-C. 4. Polymyalgia rheumatica. He is on prednisone. 5. Low-grade fever, 100.4. Urine was clear. Chest x-ray is stable. Blood cultures are negative thus far. I am not starting antibiotics. If Dr. Gunderson feels otherwise, he can certainly pursue that. At this point, I do not feel there is an active infection. 6. Right toe with some depressed blood flow. His arterial Dopplers are unremarkable. DISPOSITION: Likely can go to rehab tomorrow if stable. cc: Rogelio Leach MD
[2017-02-10] MEDS: DULCOLAX PR SCH (21:50)
[2017-02-11] MEDS: PROTONIX IV SCH ×2 (01:01→12:00)
[2017-02-11] MEDS: CARAFATE LIQUID PO SCH ×4 (01:01→20:28)
[2017-02-11] MEDS: ZOFRAN IV PRN (03:12)
[2017-02-11] MEDS: DILAUDID IV PRN ×2 (03:25→20:28)
[2017-02-11 05:13] LABS: HEMATOCRIT 25.1 % (42.0-52.0); HEMOGLOBIN 7.4 g/dL (14.0-18.0); MCH 21.8 PG (27-31); MCHC 29.5 g/dL (33-37); MCV 73.8 FL (81-99); MPV 8.7 FL (7.4-10.4); RBC 3.4 XMIL (4.7-6.1)
[2017-02-11 05:50] LABS: BUN 24 mg/dL (8-22); CALCIUM 7.6 mg/dL (8.8-10.2); MAGNESIUM 1.4 mg/dL (1.5-2.7); TCO2 24 mmol/L (25-35)
[2017-02-11 05:51] LABS: CHLORIDE 98 mmol/L (98-107); POTASSIUM 3.4 mmol/L (3.5-5.1); SODIUM 133 mmol/L (136-145)
[2017-02-11 05:52] LABS: AGAP 11
[2017-02-11 05:53] LABS: COSMO 270
[2017-02-11] MEDS: HUMALOG SUBQ SCH ×4 (06:14→20:29)
[2017-02-11] MEDS: DUONEB (A & A) INH PRN ×3 (08:07→15:19)
[2017-02-11] MEDS: KLOR-CON PO SCH (08:29)
[2017-02-11] MEDS: PREDNISONE PO SCH (08:30)
[2017-02-11] MEDS: ICAR-C PO SCH ×2 (08:30→20:28)
[2017-02-11] MEDS: CENTRUM SILVER PO SCH (08:30)
[2017-02-11] MEDS: CYANOCOBALAMIN IM SCH (08:31)
[2017-02-11] MEDS: SODIUM CHLORIDE 0.9% INJ SCH (12:00)
[2017-02-11] MEDS ORDERED: CATHFLO IV ONE (12:18)
[2017-02-11] MEDS ORDERED: STERILE WATER INJ. INJ ONE (12:18)
[2017-02-11] MEDS ORDERED: FLEET MINERAL OIL ENEMA PR PRN (12:20)
[2017-02-11] MEDS ORDERED: MAGNESIUM SULFATE 2 GM/S.W.I. 2 GM/50 ML IVPB IV ONE (12:30)
[2017-02-11] MEDS ORDERED: MIRALAX PO SCH (12:30)
[2017-02-11 12:37] LABS: HEMATOCRIT 25.9 % (42.0-52.0); HEMOGLOBIN 7.7 g/dL (14.0-18.0)
[2017-02-11] MEDS ORDERED: POTASSIUM PHOSPHATE 40 MEQ in NS 250 ML IV ONE (14:00)
[2017-02-11] MEDS: LACTULOSE PO SCH ×2 (14:23→20:28)
[2017-02-11] MEDS: MIRALAX PO SCH (20:27)
[2017-02-11] MEDS: REGLAN LIQUID PO SCH (20:28)
[2017-02-11] MEDS: DULCOLAX PR SCH (20:28)
--- NOTE | 2017-02-11 21:38 | PROGRESS NOTE ---
DATE: 02/11/2017 SUBJECTIVE: The patient is currently resting in bed. His is at the bedside. He complains of constipation and some bloating. He had a very small bowel movement today. He has been on Linzess 290 mcg once daily, MiraLAX twice daily and lactulose twice daily. He denies any nausea, vomiting or vomiting blood. He denies passing blood in the stools. He denies any fevers, rigors, or chills. OBJECTIVE: Vital signs: Temperature 98, pulse of 113, respiratory rate of 20, blood pressure 113/81, saturating 98% 3 L nasal cannula. General appearance: Moderately built, moderately nourished lying in bed, in no acute distress. HEENT: Pale conjunctivae, no icterus. Neck: Is supple. Abdomen: Obese, soft, nontender, nondistended. Bowel sounds heard. No guarding, no rebound. Extremities: No cyanosis, clubbing. Neurologic: He is alert, awake, oriented. LABORATORY: Hemoglobin and hematocrit is 7.7, 25.9, white count of 7.5, platelet count of 230,000. Sodium 130, potassium 3.4, chloride 98, bicarb 24, anion gap 11, BUN of 24, creatinine 1, glucose of 168. Calcium is 7.6. Phosphorus 2.3, magnesium 1.4. IMPRESSION/PLAN: 1. Anemia. We will give the patient Iron C b.i.d. for 3 months. We will start him on multivitamin once daily. This is most likely secondary to a large duodenal ulcer. 2. Large duodenal ulcer. We will keep the patient on proton pump inhibitor twice daily for 3 months. We will do a repeat EGD in 3 months, document healing ulcer. Patient will be kept on Carafate 1 g 6 hours for 6 weeks. 3. Polymyalgia rheumatica. He is on prednisone for 1 year and he is currently on 15 mg once daily. I discussed that with Dr. Leach. They may need to wean him down and monitor the patient adrenal insufficiency. Being on chronic prednisone may delay the healing potential of the duodenal ulcer. 4. Constipation. The patient is on Linzess 290 mcg every day, MiraLAX twice daily and lactulose twice a day. We will evaluate the response. We will encourage him to eat a high fiber diet. 5. Patient has some cecal AVMs noted on a colonoscopy by Dr. Gomez. If the patient starts having rectal bleeding, then they need to be cauterized. 6. We will avoid any nonsteroidal antiinflammatory drugs. 7. Low-grade fever 100.4. Negative infectious workup. Currently he is afebrile. We will watch for now. 8. Patient most likely will go to the rehab after discharge. I discussed the plan of care with the patient and the family at bedside. I also discussed plan of care with Dr. Leach. cc: MD Rogelio Menard MD
[2017-02-12] MEDS: PROTONIX IV SCH ×2 (01:15→11:24)
[2017-02-12] MEDS: DILAUDID IV PRN ×4 (01:15→23:48)
[2017-02-12] MEDS: CARAFATE LIQUID PO SCH ×4 (01:15→20:57)
[2017-02-12] MEDS: DUONEB (A & A) INH PRN ×2 (03:26→07:40)
[2017-02-12 05:14] LABS: HEMATOCRIT 26.9 % (42.0-52.0); MCH 21.9 PG (27-31); MCHC 29.7 g/dL (33-37); MCV 73.5 FL (81-99); MPV 8.7 FL (7.4-10.4); RBC 3.66 XMIL (4.7-6.1)
[2017-02-12 05:43] LABS: AGAP 9; BUN 21 mg/dL (8-22); CALCIUM 8.7 mg/dL (8.8-10.2); CHLORIDE 97 mmol/L (98-107); COSMO 272; MAGNESIUM 1.9 mg/dL (1.5-2.7); POTASSIUM 4.6 mmol/L (3.5-5.1); SODIUM 135 mmol/L (136-145); TCO2 29 mmol/L (25-35)
[2017-02-12] MEDS: REGLAN LIQUID PO SCH ×3 (06:15→20:57)
[2017-02-12] MEDS: HUMALOG SUBQ SCH ×4 (06:16→20:58)
[2017-02-12] MEDS: LACTULOSE PO SCH ×2 (08:18→20:57)
[2017-02-12] MEDS: PREDNISONE PO SCH (08:19)
[2017-02-12] MEDS: MIRALAX PO SCH ×2 (08:19→20:57)
[2017-02-12] MEDS: KLOR-CON PO SCH (08:19)
[2017-02-12] MEDS: ICAR-C PO SCH ×2 (08:19→20:57)
[2017-02-12] MEDS: CYANOCOBALAMIN IM SCH (08:19)
[2017-02-12] MEDS: CENTRUM SILVER PO SCH (08:19)
[2017-02-12] MEDS: SODIUM CHLORIDE 0.9% INJ SCH (11:24)
--- NOTE | 2017-02-12 12:24 | DISCHARGE SUMMARY ---
ADMISSION DATE: 02/03/2017 DISCHARGE DATE: 02/12/2017 CONSULTATIONS: 1. Dr. Avelino Saeed with Cardiology. 2. Dr. Grissom with Gastroenterology. PERTINENT PROCEDURES: 1. Abdomen and pelvis CT showed inflammation of the duodenal bulb, with areas that are focally more inflamed, probably represents PUD. No perforation, free air or free fluid. 2. EGD performed by Dr. Grissom. 3. Venous Dopplers of the left arm showed no deep or superficial venous thrombosis. 4. Abdominal x-ray showed mild air distended loops of bowel in the left abdomen may represent an ileus or partial obstruction. 5. Bilateral lower extremity segmental Doppler exam showed normal ABIs bilaterally. DISCHARGE DIAGNOSES: 1. Severe esophagitis. Continue PPI and Carafate. 2. Left upper extremity swelling. Venous Doppler showed no superficial or deep venous thrombosis. [place] it was just third-spacing from IV fluids. 3. Iron deficiency anemia. Continue with iron supplementation. Hemoglobin and hematocrit are stable. 4. Vitamin D deficiency. Continue with vitamin D replacement. 5. Vitamin B12 deficiency. Continue with vitamin B12 replacement. 6. Polymyalgia rheumatica, Continue prednisone. 7. Constipation. The patient is on Linzess 290 mcg daily plus MiraLAX twice daily and lactulose twice daily. Encouraged to eat a high-fiber diet. Since the 2nd he has 4 reported bowel movements that are reported soft liquid and today is soft and brown. 8. GI bleed secondary to duodenal ulcer. Again followed by GI. Continue PPI and Carafate. 9. Low-grade fever. Negative infectious workup. Currently afebrile. HOSPITAL COURSE: Mr. Bay is a 71-year-old gentleman with a past medical history of hypertension, hyperlipidemia, tobacco abuse, chronic COPD. Patient a week prior to his admission started having what he thought was constipation. He did note that he fell and cracked some ribs about 6 weeks ago and has really not had normal bowel movements since that time. He has had some generalized abdominal pain, nausea, mild shortness of breath with some abdomen distention. He also had pain in the epigastric region that was persistent and severe causing him not to be able to eat. He had taken multiple laxatives and suppositories and finally did have a bowel movement 3 days prior to coming in. He stated it was watery. No signs of bleeding. It was not dark in color. It was brown but he continued to have abdominal pain so he came to the ED. A CT scan at [facility] was obtained that showed an ulcer in the posterior aspect of the gastroduodenal junction so the patient was transported to [facility] for GI consult. He was admitted to the [facility]. He was placed on Protonix and underwent an EGD with Dr. Grissom as well as placed on Icar C, a multivitamin. He is to avoid NSAIDs, spicy food, follow GERD lifestyle changes. Wean down his prednisone as he has not healing of his ulcer and repeat an EGD in 3-6 months. He then underwent a colonoscopy with Dr. Gomez that just showed diverticulosis and a few small AVMs in the cecum but no active bleeding. Physical therapy was consulted to work with the patient as well as manager social work for rehab placement. The patient did have some left upper extremity swelling. His ultrasound was negative. They just felt that it was 3rd spacing from being volume overloaded. His IV fluids were stopped. The patient complained of some constipation and GI was still following him. He has been on Linzess, MiraLAX, lactulose as well as encouraged to continue on a high-fiber diet. As recorded today patient has had 2 soft brown BMs. He is appropriate for discharge today at [facility]. VITAL SIGNS: Temperature is 98.6 degrees, heart rate 104, respirations 18, blood pressure 132/88, O2 is 93% on 3 L nasal cannula. DISCHARGE DIET: High fiber. DISCHARGE MEDICATIONS: As per Dr. Leach. Please see MAR. FOLLOWUP: Mr. Bay is being discharged to [facility]. He is to continue to follow up with GI as recommended for repeat EGD and colonoscopy in 6 months. Continue on medications as prescribed. Follow a high-fiber diet. Continue GERD lifestyle changes. He is to avoid any NSAID as well as spicy food. He can return to the ED for any worsening of symptoms. Dictated by WILTON Guo for Rogelio Leach MD cc: MD Dr. Sanjuanita Weinstein pt examined, agree with above [facility]
--- NOTE | 2017-02-12 13:32 | PROGRESS NOTE ---
DATE: 02/12/2017 SUBJECTIVE: Patient currently resting in a chair. He is eating his breakfast. His family is present at bedside. He denies any fevers, rigors, or chills. Denies any nausea, vomiting, vomiting blood. He had 3 good bowel movements last night and he is eating well this morning. He feels better today. Vitals: Temperature is 97.6 degrees, pulse rate 110, respiratory rate 20, blood pressure 122/72, saturating 96% on 3 L nasal cannula. General Appearance: Moderately nourished, sitting in chair, in no acute. HEENT: No pallor. No icterus. Neck: Supple. Abdomen: Obese, soft, mild discomfort. No rebound. No guarding. Bowel sounds. Extremities: No cyanosis, clubbing, and mild lower extremity noted. Neurologic: He is alert, awake, oriented x3. LABS: Hemoglobin and hematocrit is 8 and 26.9, white count of 8.3, platelet count of 297,000. MCV of 73.5. Sodium 135, potassium 4.6, chloride 97, bicarb 29, anion gap 9, BUN 21, creatinine 1, glucose of 76, calcium 8.7, magnesium 1.9. IMPRESSION AND PLAN: 1. Anemia which is improving. We will give him Iron C b.i.d. for 3 months and multivitamin once daily. This is likely secondary to large duodenal ulcer. 2. Polymyalgia rheumatica. The primary care team is going to work to wean his prednisone down to the lowest possible. We also need to monitor him for adrenal insufficiency. 3. Tachycardia, hypertension, generalized malaise. Could be a sign of adrenal insufficiency and he is a high risk for adrenal insufficiency. The patient has been on prednisone for almost 1 year for polymyalgia rheumatica. 4. Constipation. We will continue on Linzess 290 mcg every day and MiraLAX 17 g p.o. b.i.d. and lactulose b.i.d. Since the patient is doing well on this regimen we will keep him on discharge and if he starts to have diarrhea and they can hold this regimen for 1-2 days. 5. Cecal AVM's on colonoscopy. If he restarts bleeding he may need to be cauterized. 6. The patient most likely will go to rehab after discharge. The above plan of care discussed with the patient and family at bedside. cc: MD Rogelio Menard MD
[2017-02-12] MEDS ORDERED: PREDNISONE PO SCH (18:26)
[2017-02-12] MEDS ORDERED: MARINOL PO ONE (18:26)
[2017-02-12] MEDS ORDERED: NICODERM PATCH TD PRN (18:27)
--- NOTE | 2017-02-12 18:57 | PROGRESS NOTE ---
DATE: 02/12/2017 SUBJECTIVE: Patient has no focal complaints. OBJECTIVE: Vital Signs: Blood pressure 122/74, heart rate 115, respiratory rate 24, temperature 97.7, 100% saturation on 3 L. Cardiovascular: Regular rate and rhythm. Pulmonary: Bilateral breath sounds. Clear to auscultation. GI: Soft, nontender, nondistended. Bowel sounds are positive. LABS: White count 8, hemoglobin and hematocrit of 8 and 26, platelets 297. Sodium 135. PROBLEM LIST: 1. Acute gastrointestinal bleed secondary to duodenal ulcer, continue. He is on a proton pump inhibitor. Hemoglobin and hematocrit is stable today. 2. Iron-deficiency anemia. Appears to be stable. 3. Polymyalgia rheumatica. She is on prednisone and overall stable. 4. Low-grade fevers. Appears clinically improved. 5. Hypokalemia. 6. Hypomagnesemia, also improved. DISPOSITION: Had a long discussion with family because there were upset about discharge plans yesterday, discharge plans today, because they do not feel his bowels are appropriately moving. We discussed that he is on a bowel regimen. He is having results from the bowel regimen and that he could not stay in the hospital indefinitely because of constipation. They understood this. We agreed to monitor him another day to make sure his hemoglobin and hematocrit is stable, as he does have AVMs in his colon, because they were not actively bleeding, but have not been cauterized and they agreed that if hemoglobin and hematocrit is stable and bowel movements are regular on his current regimen of MiraLAX, lactulose and Linzess, that he would have to proceed towards rehab tomorrow and they are in accordance with the plan. cc: Rogelio Leach MD
[2017-02-12] MEDS: ATIVAN PO PRN (20:57)
[2017-02-12] MEDS: DULCOLAX PR SCH (20:57)
[2017-02-12] MEDS: MARINOL PO SCH (20:58)
[2017-02-12] MEDS: ZOFRAN IV PRN (23:48)
[2017-02-13] MEDS ORDERED: BENADRYL IV ONE (01:20)
[2017-02-13] MEDS: CARAFATE LIQUID PO SCH ×4 (02:01→20:32)
[2017-02-13] MEDS: DILAUDID IV PRN (03:40)
[2017-02-13 05:24] LABS: HEMATOCRIT 29.4 % (42.0-52.0); HEMOGLOBIN 8.8 g/dL (14.0-18.0); MCH 21.9 PG (27-31); MCHC 29.9 g/dL (33-37); MCV 73.3 FL (81-99); MPV 8.9 FL (7.4-10.4); RBC 4.01 XMIL (4.7-6.1)
[2017-02-13] MEDS: REGLAN LIQUID PO SCH (05:27)
[2017-02-13] MEDS: PROTONIX IV SCH ×2 (05:27→18:19)
[2017-02-13 05:53] LABS: AGAP 11; BUN 19 mg/dL (8-22); CALCIUM 9.8 mg/dL (8.8-10.2); CHLORIDE 96 mmol/L (98-107); COSMO 272; POTASSIUM 4.4 mmol/L (3.5-5.1); SODIUM 135 mmol/L (136-145); TCO2 28 mmol/L (25-35)
[2017-02-13 06:28] LABS: URINE CULTURE NEEDED? NO; URINE MICRO REVIEW NEEDED? NO; URINE SOURCE CLEAN CATCH
[2017-02-13] MEDS: HUMALOG SUBQ SCH ×4 (06:29→20:32)
[2017-02-13 06:33] LABS: BILIRUBIN URINE NEGATIVE (NEGATIVE); BLOOD URINE NEGATIVE (NEGATIVE); COLOR YELLOW; GLUCOSE URINE NEGATIVE (NEGATIVE); LEUKOCYTES URINE NEGATIVE (NEGATIVE); NITRITE URINE NEGATIVE (NEGATIVE); PH URINE 5.5; PROTEIN URINE TRACE mg/dL (NEGATIVE); SP GRAVITY URINE 1.015; TURBIDITY URINE CLEAR (CLEAR); UR EPITHELIAL CELLS <10 /HPF (<10); URINE BACTERIA NEGATIVE /HPF; URINE RBC <10 /HPF (<10); URINE WBC <10 /HPF (<10); UROBILINOGEN URINE NORMAL (NORMAL)
[2017-02-13] MEDS: DUONEB (A & A) INH PRN ×4 (07:35→23:24)
[2017-02-13] MEDS: ICAR-C PO SCH ×2 (08:51→20:32)
[2017-02-13] MEDS: KLOR-CON PO SCH (08:51)
[2017-02-13] MEDS: CENTRUM SILVER PO SCH (08:51)
[2017-02-13] MEDS: MARINOL PO SCH (08:51)
[2017-02-13] MEDS: LACTULOSE PO SCH (08:51)
[2017-02-13] MEDS: CYANOCOBALAMIN IM SCH (08:51)
[2017-02-13] MEDS: MIRALAX PO SCH (08:51)
[2017-02-13] MEDS ORDERED: PREDNISONE PO SCH ×2 (09:44→10:18)
[2017-02-13] MEDS ORDERED: ZYPREXA ZYDIS PO ONE (09:48)
--- NOTE | 2017-02-13 10:12 | Diag Imaging Result Doc PS360 ---
EXAM: KUB ABDOMEN - 02/13/2017 HISTORY: increased wbc TECHNIQUE: Portable AP supine abdomen 200 hours COMPARISON: 02/09/2017 FINDINGS: The bowel gas pattern appears nonspecific and nonobstructive. There is some mildly dense material at the medial left upper quadrant which was not seen on previous exam may represent some medication residue in the stomach. IMPRESSION: Nonspecific bowel gas pattern. Electronically signed by Kenneth Montoya 02/13/2017 10:10 AM
--- NOTE | 2017-02-13 10:15 | Diag Imaging Result Doc PS360 ---
EXAM: CHEST-PORTABLE - 02/13/2017 HISTORY: tachycardia, increased wbc TECHNIQUE: Portable chest 1000 COMPARISON: 02/09/2017 FINDINGS: Heart size appears mildly enlarged but may be exaggerated by the AP projection. There is bilateral mid and lower lung interstitial marking prominence similar to the previous exam and possibly related to fibrosis. Compared to previous exam, there is no acute consolidation, pleural effusion, or pneumothorax identified. PICC remains in place. IMPRESSION: Mild cardiomegaly. Stable interstitial marking prominence, which may relate to fibrosis. Compared to previous exam, no acute consolidation. Electronically signed by Kenneth Montoya 02/13/2017 10:12 AM
[2017-02-13 10:23] LABS: ALLEN TEST YES; BE 4.6 mmoll (-3.0-3.0); BLOOD TYPE ARTERIAL; DRAW SITE L RADIAL; METHB 0.5 % (0.0-1.5); MODALITY ROOM AIR; O2(CT) 12.7 mL/dL (15.0-23.0); PCO2(98.6) 37 mmHg (35-45); PO2(98.6) 63 mmHg (60-100); SAMPLE BLOOD; SAO2 94.6 % (95.0-100.0); THB 9.7 g/dL (11.5-17.4); pH(98.6) 7.49 (7.35-7.45)
--- NOTE | 2017-02-13 10:23 | EKG Report ---
Test Performed on : 02/13/2017 10:06:01 AM Test Reason : Increased HR Blood Pressure : / mmHG Vent. Rate : 132 BPM Atrial Rate : 132 BPM P-R Int : 142 ms QRS Dur : 074 ms QT Int : 302 ms P-R-T Axes : 040 007 037 degrees QTc Int : 447 ms Sinus tachycardia. Cannot rule out Anterior infarct , age undetermined Abnormal ECG When compared with ECG of 04-FEB-2017 10:39, No significant change was found Confirmed by Fabricio Saeed DO ([id number]) on 02/14/2017 12:34:04 PM
--- NOTE | 2017-02-13 11:20 | PROGRESS NOTE ---
DATE: 02/13/2017 SUBJECTIVE: The patient has had a very agitated night, not a good night at all, very confused. Worse at night. He has been having episodes of confusion per his family, intermittently, since he says he has been sick and since he has been on decreased dose steroids. However the patient seems to be he eats seems to be better now. I mean he is tired but he does not seem to be in any acute distress right now. The patient apparently got very agitated. He was given Ativan overnight and it bit reportedly made him worse. He is tachycardic this morning. OBJECTIVE: Vital signs: Blood pressure 155/79, heart rate of 134, respiratory rate 24, temperature 99.5 degrees, 100% on 3 L. Cardiovascular: Regular rate and rhythm. Pulmonary: Bilateral breath sounds. Clear to auscultation. Gastrointestinal: Abdomen soft, nontender, nondistended. Bowel sounds are positive. LABORATORY DATA: White count is 12, hemoglobin and hematocrit 8 and 29, platelets 372,000. Sodium 135. PROBLEM LIST: 1. Acute encephalopathy, although at this point he is oriented. I think this is multifactorial but I think it is also related to the Marinol that was started yesterday. His son in particular wanted to initiate that, he was hoping it would make him more relaxed and stimulate his appetite but it has obviously had very untoward effects. I think a lot of this hallucination/agitation is related to that. He is also on several other medications that could be contributing. In any case, we are going to try to stop everything sedating, obviously stop the Marinol. He did get a dose this morning. I am going to use some Zyprexa intermittently for severe agitation especially at night and we will follow accordingly. In any case, it may also be related to steroid-induced agitation. 2. Gastrointestinal bleed. This appears to be stabilized. His hemoglobin and hematocrit is actually improved. 3. Sinus tachycardia and leukocytosis. We will repeat chest x-ray. This may be related to steroids or a new issue. He did have a urine sample drawn that was unremarkable. Chest x-ray and KUB have been ordered. We will continue to follow those and treat accordingly. 4. Constipation. This appears to have resolved. Again, we will try to avoid any other major issues with him and see how he does clinically. DISPOSITION: Obviously, he is not ready to go to the rehab today. This will delay discharge for a couple more days, I anticipate. cc: Rogelio Leach MD
[2017-02-13] MEDS: SODIUM CHLORIDE 0.9% INJ SCH (18:19)
[2017-02-13] MEDS ORDERED: ZYPREXA ZYDIS PO SCH (21:00)
[2017-02-13] MEDS: ULTRACET 37.5MG/325MG PO PRN (22:25)
[2017-02-14] MEDS: CARAFATE LIQUID PO SCH ×4 (01:21→20:22)
[2017-02-14] MEDS: DUONEB (A & A) INH PRN ×3 (03:20→19:30)
[2017-02-14 05:30] LABS: HEMATOCRIT 29.7 % (42.0-52.0); HEMOGLOBIN 8.9 g/dL (14.0-18.0); MCV 73.5 FL (81-99); MPV 8.9 FL (7.4-10.4); RBC 4.04 XMIL (4.7-6.1)
[2017-02-14 06:25] LABS: CALCIUM 9.3 mg/dL (8.8-10.2); MAGNESIUM 1.8 mg/dL (1.5-2.7)
[2017-02-14] MEDS: HUMALOG SUBQ SCH ×4 (06:28→20:22)
[2017-02-14] MEDS: CALMOSEPTINE OINTMENT TOP PRN (06:29)
[2017-02-14] MEDS: PROTONIX IV SCH ×2 (06:29→18:05)
[2017-02-14 06:35] LABS: POTASSIUM 4.4 mmol/L (3.5-5.1)
[2017-02-14] MEDS: MIRALAX PO SCH (08:41)
[2017-02-14] MEDS: CYANOCOBALAMIN IM SCH (08:43)
[2017-02-14] MEDS: CENTRUM SILVER PO SCH (08:43)
[2017-02-14] MEDS: ICAR-C PO SCH ×2 (08:43→20:22)
[2017-02-14] MEDS: KLOR-CON PO SCH (08:43)
[2017-02-14] MEDS: VITAMIN D PO SCH (10:43)
[2017-02-14] MEDS: ULTRACET 37.5MG/325MG PO PRN (13:07)
[2017-02-14] MEDS: LASIX IV SCH (14:30)
[2017-02-14] MEDS ORDERED: PREDNISONE PO ONE (14:30)
--- NOTE | 2017-02-14 15:02 | PROGRESS NOTE ---
DATE: 02/14/2017 SUBJECTIVE: Patient is very somnolent this morning. Difficult to wake up. He does wake up. He does describe things. I am not sure he slept well last night though. I do not think he has slept well for the last couple nights. OBJECTIVE: PHYSICAL EXAMINATION: Vital Signs: Blood pressure 134/75, heart rate of 118, respiratory rate of 20, temperature 97.9 degrees. Cardiovascular: Regular rate and rhythm. Pulmonary: Bilateral breath sounds. Clear to auscultation. GI: Soft, nontender, nondistended. Bowel sounds are positive. Skin Examination: He has excoriations on his feet bilaterally. He has 2 to 3+ pedal edema bilaterally. He has a very cold purplish toe on the right tip of the toe. He has had issues with that before and it looks like it has progressed a little bit more. He is complaining of pain for him at this time. LABORATORY DATA: White count 9.8, hemoglobin and hematocrit 8.9 and 29, platelets 379,000. Basic showed a creatinine of 1.3. PROBLEM LIST: 1. Encephalopathy. Patient has had issues intermittently with this apparently since he has been on steroids. It has definitely worsened over the last 2 days. It still could be effect from Marinol he had a couple days ago for appetite stimulation. He seems more sedated. I am going to try to hold anything sedating today and re-evaluate. We will go ahead and get a head CT to rule out any ischemic issues. 2. Gastrointestinal bleed is stable. Hemoglobin and hematocrit is stable. Continue proton pump inhibitors, sucralfate. 3. Constipation. He is on current medications. 4. Possible ischemic toe. I am going to get Dr. Joshi to look over him. CT angiography will be difficult because of renal insufficiency. Arterial Dopplers were really not that impressive about 4 days ago but we will continue to follow. 5. Disposition. Still pending rehab. We will continue to monitor closely. cc: Rogelio Leach MD
--- NOTE | 2017-02-14 16:44 | CONSULTATION ---
DATE OF CONSULTATION: 02/14/2017 CHIEF COMPLAINT: Purple toes right foot. HISTORY: This 71-year-old gentleman admitted on the 04 of February with a duodenal ulcer. He has been coincidentally noted to have discoloration to his right great toe and 4th toe. He states that discoloration began over a month ago. He is an admitted smoker. He says the discoloration of the involved toes is not particularly tender or painful. OTHER MEDICAL PROBLEMS: Include the peptic ulcer disease, hypertension, hyperlipidemia. PREVIOUS SURGERY: Includes a right cataract surgery and skin biopsy. SOCIAL HISTORY: He says he quit smoking about 7 weeks ago. ALLERGIES: He is allergic to morphine. REVIEW OF SYSTEMS: Is as noted above. PHYSICAL EXAM: Vital signs: Afebrile, heart rate 118, respiratory 22, blood pressure 134/75. He has nasal oxygen in place. Lungs: Bilateral breath sounds. Heart: Regular rhythm. Abdomen: Soft. Extremities: Femoral pulses are present. I cannot palpate pedal pulses but he has 3+ pitting edema bilaterally. He has also upper extremity peripheral edema. He has purplish discoloration to his right great toe and the tip of the right 4th toe. These are not particularly tender to palpation. Neuro: He is awake and alert. LABS: White count 9800, hemoglobin 8.9, hematocrit 29.7. BUN 20, creatinine 1.3. His lower extremity arterial study done on 02/09/2017 showed pulsatile flow all the way to the digits. The right AB index is 1.1, left 1.0, right toe to brachial index is 0.7, left 0.8. ASSESSMENT: This represents digital vessel ischemia probably related to his history of smoking. Otherwise his lower extremity arterial study appeared satisfactory. I do not think any other intervention is indicated. Realize that he probably cannot take antiplatelet therapy in view of his duodenal ulcer. I think the main issue would be for him to continue not to smoke and digital vessels typically will re-cannulize or improve. The tissue usually survives and will revascularize. So as long as he does not smoke I think his toes will be okay. I discussed this with him and his . Thanks for opportunity to see Mr. Bay. cc: David Joshi MD
--- NOTE | 2017-02-14 17:12 | Diag Imaging Result Doc PS360 ---
EXAM: HEAD W/O CONTRAST - 02/14/2017 HISTORY: encephalopathy TECHNIQUE: Dose reduction protocol COMPARISON: None. FINDINGS: There are generalized mild atrophic changes. There is no evidence of hemorrhage, mass effect, midline shift, or hydrocephalus. There is mild ventricular asymmetry consistent with normal variation. There is no evidence of infarct, although acute infarcts may not be immediately visible. Visualized portions of paranasal sinuses and mastoid air cells appear clear. IMPRESSION: Mild atrophic changes. No visible acute intracranial abnormality. Electronically signed by Kenneth Montoya 02/14/2017 5:09 PM
[2017-02-14] MEDS: SODIUM CHLORIDE 0.9% INJ SCH (18:05)
[2017-02-14] MEDS: NEURONTIN PO PRN (20:22)
[2017-02-14] MEDS ORDERED: ZYPREXA ZYDIS PO PRN (21:00)
[2017-02-15] MEDS: CARAFATE LIQUID PO SCH ×4 (01:42→20:31)
[2017-02-15 05:26] LABS: HEMATOCRIT 28.4 % (42.0-52.0); HEMOGLOBIN 8.3 g/dL (14.0-18.0); MCH 21.6 PG (27-31); MCHC 29.2 g/dL (33-37); MCV 73.8 FL (81-99); MPV 8.8 FL (7.4-10.4); RBC 3.85 XMIL (4.7-6.1)
[2017-02-15 05:53] LABS: AGAP 14; ALBUMIN 2.3 g/dL (3.5-5.0); BUN 26 mg/dL (8-22); CALCIUM 9.5 mg/dL (8.8-10.2); CHLORIDE 96 mmol/L (98-107); COSMO 284; MAGNESIUM 1.9 mg/dL (1.5-2.7); POTASSIUM 4.1 mmol/L (3.5-5.1); SODIUM 138 mmol/L (136-145); TCO2 28 mmol/L (25-35)
[2017-02-15] MEDS: HUMALOG SUBQ SCH ×4 (06:19→20:53)
[2017-02-15] MEDS: PROTONIX IV SCH ×2 (06:19→17:36)
[2017-02-15] MEDS: VITAMIN B-12 PO SCH (09:16)
[2017-02-15] MEDS: PREDNISONE PO SCH (09:16)
[2017-02-15] MEDS: ICAR-C PO SCH ×2 (09:16→20:31)
[2017-02-15] MEDS: MIRALAX PO SCH (09:16)
[2017-02-15] MEDS: KLOR-CON PO SCH (09:16)
[2017-02-15] MEDS: LASIX IV SCH (09:16)
[2017-02-15] MEDS: CENTRUM SILVER PO SCH (09:17)
[2017-02-15] MEDS ORDERED: LACTULOSE PO PRN (12:33)
--- NOTE | 2017-02-15 15:12 | PROGRESS NOTE ---
DATE: 02/15/2017 SUBJECTIVE: Patient has no focal complaints. OBJECTIVE: Vital signs: Blood pressure 130/87, heart rate 119, respiratory 18, temperature 98.1 degrees, 97% on 2 L. Cardiovascular: Regular rate and rhythm. Pulmonary: Bilateral breath sounds clear to auscultation. GI: Soft, nontender, nondistended. Bowel sounds are positive. LABORATORY DATA: His white count is normal today, hemoglobin and hematocrit is stable at 8 and 28 and it has been stable for about 4 days. Basic looks good. Creatinine is back down to 1.1. PROBLEM LIST: 1. Encephalopathy that seems to have resolved. I think that was likely related to Marinol but he seems to be doing much better. 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 I am a little reluctant to schedule that because he is just prone to sedation but I think he may need that intermittently. 2. Gastrointestinal bleed secondary to duodenal ulcer. That appears stable. No further bleeding. He is still having significant constipation so he will need a bowel regimen. 3. Digital ischemia or peripheral ischemia. Dr. Joshi has analyzed him, he feels that as long as he stays off smoking the toe will heal, he does not need any intervention and his arterial Doppler studies were negative. 4. Disposition. I think he is finally stable to go to rehab tomorrow. Orders have already been in place, the only thing else I will add is the Neurontin p.r.n. for neuropathy. cc: Rogelio Leach MD
[2017-02-15] MEDS: SODIUM CHLORIDE 0.9% INJ SCH (17:37)
[2017-02-15] MEDS: DUONEB (A & A) INH PRN (19:45)
[2017-02-15] MEDS: DULCOLAX PR SCH (20:31)
[2017-02-15] MEDS: NEURONTIN PO PRN (20:31)
--- NOTE | 2017-02-15 21:16 | PROGRESS NOTE ---
DATE: 02/15/2017 SUBJECTIVE: Patient is feeling a little better. Slept a little better, no complaints, had a good breakfast, had a bowel movement. No signs of any bleeding. OBJECTIVE: Vital signs: Blood pressure 130/87, heart rate 110, respirations 18, temperature 98, O2 saturation 97% on 2 L. Heart: Normal first and second heart sounds. Lungs: Are clear. Abdomen: Soft, nontender. Bowel sounds are present. Extremities: Right toe is still purplish but Dr. Joshi has seen him and he thinks circulation is good and this should improve as long as he does not smoke. LAB DATA: Hemoglobin and hematocrit are stable. Creatinine is normal 1.1. IMPRESSION AND PLAN: 1. Encephalopathy which has been resolved, I think he settled down with the Neurontin for the neuropathy in the lower extremities. 2. Gastrointestinal bleed stable, no signs of bleeding, continue Carafate and Protonix. 3. Distal ischemia should improve per Dr. Joshi because he has good circulation other than digital circulation and will continue with that. 4. Smoking cessation should be a priority to save his feet. Continue the current teaching. 5. Neuropathy much better on Neurontin and resting better. -4 cc: Graham Gomez MD
--- NOTE | 2017-02-15 21:16 | PROGRESS NOTE ---
DATE: 02/13/2017 SUBJECTIVE: Bad night, did not the rest at all, agitated. He still complains of restlessness. He says that he got Ativan and that made him worse. OBJECTIVE: Vital Signs: Blood pressure 150/70, heart rate 110, respiratory rate 24, temperature 99.5 degrees, 100% on 3 L. Heart: Hyperdynamic, tachycardic. Lungs: Clear. Abdomen: Protuberant but soft, nontender, bowel sounds are present. LABORATORY DATA: White count is 12, hemoglobin and hematocrit are stable at 8 and 29. IMPRESSION AND PLAN: 1. Acute metabolic encephalopathy a combination of weaning of steroids, addition of the other medicine but to this has been handled by Dr. Leach. 2. Gastrointestinal bleed currently stable. No signs of bleeding. Continue combination of PPI and Carafate. 3. Sinus tachycardia and leukocytosis. This has been being worked up. It may be steroid related but there is a possibility that he may have infection. 4. Constipation is getting better almost resolved. Will follow with you until his discharge from the hospital. cc: Graham Gomez MD
--- NOTE | 2017-02-15 21:17 | PROGRESS NOTE ---
DATE: 02/14/2017 SUBJECTIVE: Patient is very sleepy again, did not sleep well last night and sleeping during the day. No hematemesis, melena, hematochezia, he actually is better. OBJECTIVE: Vital signs: Blood pressure 134/70, heart rate 110, respirations 20, temperature normal at 97.9. Cardiovascular: Normal except for slight tachycardia. Lungs: Are clear. Abdomen: Soft, nontender. No organomegaly. No ascites. Bowel sounds present and normal. Extremities: He has a purplish toe in the right big toe. He says that he had that before but no focal deficit. LABORATORY DATA: White count is down to 9 and 9.8, hemoglobin and hematocrit is stable. Creatinine 1.3. PROBLEM LIST: 1. Encephalopathy still going on. Now there is a shift of his sleep pattern probably related to the weaning of steroid and addition of medication but that has been handled the primary care physician. 2. Gastrointestinal bleed secondary to large duodenal ulcer is stable. 3. Constipation resolved. 4. Possible ischemia right toe. Dr. Joshi is being consulted and will continue to follow until he is discharged . -5 cc: Graham Gomez MD
[2017-02-16] MEDS: CARAFATE LIQUID PO SCH ×4 (02:32→20:49)
--- NOTE | 2017-02-16 04:07 | PROGRESS NOTE ---
DATE: 02/10/2017 SUBJECTIVE: He is resting. Body aches. No hematemesis, melena. His constipation is a little better. OBJECTIVE: Vital signs: Temperature 99 degrees, pulse 100, respirations 16, blood pressure 140/100, saturation 97% on 2 L. General: Moderately built, moderately nourished in no acute distress. HEENT: Conjunctival pallor present. No icterus. Neck: Supple. Abdomen: Obese, no organomegaly, no ascites. Bowel sounds present and normal. Extremities: No cyanosis, clubbing. Neurological: Fairly alert, awake and oriented. Family at bedside. LAB DATA: Hemoglobin and hematocrit 9 and 30, MCV of 73, creatinine 1.2. IMPRESSION AND PLAN: 1. Severe esophagitis and large duodenal ulcer with recent bleed. He is on Protonix and Carafate. 2. Polymyalgia rheumatica. He is on prednisone. This needs to be tapered otherwise the ulcer may not heal. 3. Constipation getting better. 4. Iron-deficiency anemia, is currently on iron b.i.d. 5. He was running low grade fever. 6. There is some restlessness at night that as described by the family but patient seems to be okay. Will watch this carefully. cc: Graham Gomez MD
[2017-02-16] MEDS: PROTONIX IV SCH ×2 (05:53→17:12)
[2017-02-16] MEDS: HUMALOG SUBQ SCH ×4 (06:04→21:15)
[2017-02-16] MEDS: NEURONTIN PO PRN (06:26)
[2017-02-16] MEDS: CALMOSEPTINE OINTMENT TOP PRN ×2 (06:27)
[2017-02-16] MEDS: ICAR-C PO SCH ×2 (08:28→20:50)
[2017-02-16] MEDS: MIRALAX PO SCH (08:28)
[2017-02-16] MEDS: CENTRUM SILVER PO SCH (08:28)
[2017-02-16] MEDS: LASIX IV SCH (08:29)
[2017-02-16] MEDS: KLOR-CON PO SCH (08:29)
[2017-02-16] MEDS: VITAMIN B-12 PO SCH (08:29)
[2017-02-16] MEDS: PREDNISONE PO SCH (08:29)
[2017-02-16] MEDS: DUONEB (A & A) INH PRN ×2 (11:25→15:05)
[2017-02-16] MEDS: SODIUM CHLORIDE 0.9% INJ SCH (17:13)
--- NOTE | 2017-02-16 18:16 | PROGRESS NOTE ---
DATE: 02/16/2017 SUBJECTIVE: Patient is currently sitting in bed. He is eating his meal. He is feeling better. He denies any fevers, aches, and chills. He was able to move his bowels twice today, which were soft brown. He denies any nausea or vomiting. OBJECTIVE: Vital signs: Temperature 98.4 degrees, pulse rate of 112, respiratory rate of 21, blood pressure 106/65, saturating 97% on nasal cannula 2 L. General Appearance : Moderately built, moderately nourished, sitting in bed, in no acute distress. HEENT: Pale conjunctivae. No icterus. Neck: Supple. Abdomen: Mildly protuberant, soft, nontender. Bowel sounds present. Extremities: No cyanosis, clubbing. Neurologic: He is alert, awake, oriented. LABS: Hemoglobin and hematocrit is 8.3 and 28.4, white count of 8.8, platelet count of 371,000. Sodium 138, potassium 4.1, chloride 96, bicarb 20, anion of 14, BUN of 20, creatinine 1.1, glucose of 157, calcium 9.5, magnesium 1.9, albumin of 2.3. IMPRESSION AND PLAN: 1. Anemia is currently stable. We will keep the patient on Iron C b.i.d. for 3 months and multivitamin once daily for 3 months. This is likely secondary to peptic ulcer disease. 2. Large duodenal ulcer on EGD: At this time the patient will continue on Protonix twice daily for 3 months and then Carafate 1 g every 6 hours for 1 month. The patient will need an EGD in 3-6 months to document healing of the ulcer. The patient will continue to follow gastroesophageal reflux life changes. 3. Digital ischemia. Being followed by Dr. Joshi. Recommended to quit smoking completely. 4. Polymyalgia rheumatica: The patient was recommended to come off prednisone or wean it down to the lowest dose possible to help heal the duodenal ulcer. 5. Constipation. Will continue Linzess 290 mcg once daily, MiraLAX 17 g twice daily, lactulose 30 mL twice daily as needed. He needs to increase the fiber intake to 25 mg q.24 hours. 6. The patient will continue to follow up with his primary care doctor about repeat blood draw and he will continue to follow up with us in 3 months after discharge. The above plans were discussed with the patient and family. cc: MD Artur Menard MD Katherine Takundwa, MD MTDАндрей
--- NOTE | 2017-02-16 18:24 | PROGRESS NOTE ---
DATE: 02/16/2017 SUBJECTIVE: The patient states that he did not sleep well overnight and does not feel good today. The swelling in his legs has gone down. He is currently receiving Lasix daily. He also complains of aches and pains in his joints. OBJECTIVE: Vital Signs: Temperature 98 degrees, blood pressure 106/65, heart rate 112, respirations 21, O2 saturations 97% on 2 L nasal cannula. General: This is an elderly male, lying in bed, in no acute distress. Head: Normocephalic, atraumatic. Heart : S1, S2. Normal. Tachycardic. Lungs: Equal air entry bilaterally. No crackles. No rales. Abdomen: Positive bowel sounds. Soft, nontender, nondistended. Extremities: No edema. No cyanosis. No calf tenderness. Neurologic: The patient is awake and alert. LABORATORY: Glucose 156. ASSESSMENT AND PLAN: 1. Encephalopathy. Improved. The patient appears to be back to his baseline as per the family. 2. Insomnia. We will restart the Zyprexa at night as it seems that helps the patient to sleep for the last couple of nights. 3. Gastrointestinal bleed secondary to a large duodenal ulcer. Continue on Carafate and Protonix. We will transition the patient to oral Protonix now. 4. Constipation. Resolved. 5. Vitamin D deficiency. Continue on vitamin D replacement. 6. Peripheral edema. Slowly improving. The patient is currently receiving IV Lasix. We will also give the patient a dose of IV albumin. 7. Polymyalgia rheumatica. We will continue on the current dose of prednisone. 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 8. Iron-deficiency anemia. Continue with iron supplementation. 9. Diabeetes mellitus type 2. Continue on sliding scale insulin. 10. Disposition. We will plan to discharge the patient to rehab tomorrow. The patient's family was also updated and are in agreement with the plan of action. cc: Raine Downing MD MTDD
[2017-02-16] MEDS: ALBUMIN 25% IV SCH (20:50)
[2017-02-16] MEDS: DULCOLAX PR SCH (20:50)
[2017-02-16] MEDS: ZYPREXA ZYDIS PO SCH (20:50)
[2017-02-16] MEDS: ULTRAM PO PRN (23:48)
[2017-02-17] MEDS: CARAFATE LIQUID PO SCH ×4 (03:15→20:42)
[2017-02-17 05:17] LABS: BASO% 0.8 % (0.0-0.8); EOS# 0.18 X1000 (0.0-0.7); EOS% 2.4 % (0.0-10.0); HEMATOCRIT 24.2 % (42.0-52.0); IMM GRAN# 0.05 X1000 (0.0-0.04); IMM GRAN% 0.7 % (0.0-0.5); LYMPH# 1.69 X1000 (1.2-3.4); LYMPH% 22.6 % (20.5-51.1); MANUAL DIFF NEEDED? YES; MCH 21.1 PG (27-31); MCHC 28.9 g/dL (33-37); MCV 73.1 FL (81-99); MONO% 6.7 % (1.7-9.3); MPV 8.8 FL (7.4-10.4); NEUT% 66.8 % (42.2-75.2); PLT 386 X1000 (130-400); RBC 3.31 XMIL (4.7-6.1)
[2017-02-17 05:58] LABS: AGAP 9; BUN 24 mg/dL (8-22); CALCIUM 9.3 mg/dL (8.8-10.2); CHLORIDE 97 mmol/L (98-107); COSMO 277; POTASSIUM 3.7 mmol/L (3.5-5.1); SODIUM 137 mmol/L (136-145); TCO2 31 mmol/L (25-35)
[2017-02-17] MEDS: HUMALOG SUBQ SCH ×3 (06:45→16:41)
[2017-02-17 07:13] LABS: BANDS 2 % (0-1); BASO 2 % (0-1); HYPOCHROM 3+; LYMPHS 22 % (21-51); MONO 4 % (1-9)
[2017-02-17 07:15] LABS: RETIC% 3.26 % (0.8-2.1); RETIC-HE 21.3 PG (28.2-36.6)
[2017-02-17] MEDS: VITAMIN B-12 PO SCH (08:28)
[2017-02-17] MEDS: ICAR-C PO SCH ×2 (08:28→20:42)
[2017-02-17] MEDS: PREDNISONE PO SCH (08:28)
[2017-02-17] MEDS: CENTRUM SILVER PO SCH (08:28)
[2017-02-17] MEDS: LASIX IV SCH (08:28)
[2017-02-17] MEDS: KLOR-CON PO SCH (08:29)
[2017-02-17] MEDS: MIRALAX PO SCH (08:29)
[2017-02-17] MEDS ORDERED: NS 500 ML ONE (08:54)
[2017-02-17] MEDS: ALBUMIN 25% IV SCH (10:06)
--- NOTE | 2017-02-17 10:47 | DISCHARGE SUMMARY ---
ADMISSION DATE: 02/03/2017 DISCHARGE DATE: 02/17/2017 PRIMARY CARE PHYSICIAN: Dr. Artur Gann. FINAL DISCHARGE DIAGNOSES: 1. Gastrointestinal bleed secondary to a large duodenal ulcer. 2. Metabolic encephalopathy. 3. Insomnia. 4. Constipation. 5. Peripheral edema. 6. Iron-deficiency anemia. 7. Obesity. 8. Vitamin D deficiency. 9. Vitamin B12 deficiency. 10. Polymyalgia rheumatica, on chronic steroid therapy. 11. Diabetes mellitus type 2 12. Diverticulosis CONSULTATIONS REQUESTED DURING THIS HOSPITAL STAY: 1. Cardiology consultation with Dr. Saeed. 2. GI consultation with Dr. Grissom. 3. General Surgery consultation with IMAGING PERFORMED DURING THIS HOSPITAL STAY: 1. CT of the abdomen and pelvis performed on 02/03/2017 that revealed inflammation of the duodenal bulb and areas that are focally inflamed, possible peptic ulcer disease. 2. Portable chest x-ray performed on 02/03/2017 that revealed a stable chest. 3. Left upper extremity venous Doppler, which revealed no evidence of DVT. 4. Bilateral lower extremity ABIs, which were unremarkable. 5. CT of the head performed on 02/14/2017, which revealed mild atrophic changes. PROCEDURES PERFORMED DURING THIS HOSPITAL STAY: 1. EGD performed on 02/05/2017 that revealed distal esophagitis and a large duodenal ulcer measuring about 4 cm in the anterior wall, covering 30% to 40%. 2. Colonoscopy performed on 02/06/2017, which revealed diverticulosis and several small AVMs in the cecum. No active bleeding. HOSPITAL COURSE: Mr. Bay is a 71-year-old male with a history of polymyalgia rheumatica, peripheral edema, and anemia, who presented to the ER with a chief complaint of abdominal pain. The patient was noted to be constipated on admission. CT of the abdomen and pelvis was done that revealed inflammation around the duodenal bulb and suggestion of possible peptic ulcer disease. The patient was admitted to the Hospitalist Service, and GI was consulted. On admission, the patient was noted to be tachycardic despite volume resuscitation, so Cardiology was consulted for further recommendations. The patient was placed on IV Protonix, and ultimately , the patient was taken for an EGD on 02/05/2017. This revealed a large duodenal ulcer measuring 4 cm, as well as severe esophagitis. Following this procedure, it was recommended that the patient remain on Protonix twice a day, as well as Carafate. The patient did not require a blood transfusion on the day of admission. Iron studies were doneprior to the transfusion, which indicated iron-deficiency anemia. The patient was started on iron supplementation as a result of this finding. The patient was noted to be vitamin B12 and vitamin D deficient, and the patient was started on supplementation for those two deficiencies. Over the course of the hospitalization, the patient started to have periods of confusion. This was thought to be secondary to medications, so several of the patient's medications were held, and the patient's mental status improved with holding the sedating medications. The patient is on chronic steroid therapy for polymyalgia rheumatica, and is followed as an outpatient by a territory sales professional for this disorder. We did decrease the patient's prednisone to 15 mg daily, and the patient has tolerated that without any difficulty. The patient also complained of persistent insomnia that dates back to several months before admission. The patient was started on Zyprexa at bedtime, and this has greatly assisted in resolving the patient's insomnia. The patient was seen by Physical Therapy, and it was determined that the patient was too weak to return home, and it was recommended that the patient be sent to inpatient rehab for further strengthening and conditioning. Today, the patient was noted to have a hemoglobin of 7 and a hematocrit of 24. The patient does not have any active bleeding at this time, and he is on iron supplementation. We will transfuse the patient with 2 units of packed red blood cells prior to discharge to rehab. The patient has been advised to follow up with Dr. Grissom in 3 months for a repeat EGD to assess the duodenal ulcer and esophagitis. The patient was also noted to have discoloration involving his toes, and so the patient was seen by Dr. Joshi with General Surgery, and it was thought that the discoloration was due to the patient's smoking history, and he was advised to quit smoking. Also, arterial Doppler studies were done, which were noted to be unremarkable. DISCHARGE MEDICATIONS: 1. Prilosec 40 mg p.o. twice a day. 2. Icar-C one tablet oral daily. 3. Vitamin B12, 1000 mcg oral daily. 4. Vitamin D2, 50,000 units oral every 7 days on Thursday. 5. Multivitamin 1 tablet oral daily. 6. Zyprexa 2.5 mg p.o. at bedtime. 7. MiraLAX 17 grams p.o. daily. 8. Prednisone 15 mg p.o. daily. 9. Tramadol 50 mg p.o. every 6 hours p.r.n. for pain. 10. Dulcolax 10 mg per rectum at bedtime. 11. Neurontin 200 mg p.o. 3 times a day p.r.n. for neuropathy. 12. Carafate 1 gram p.o. every 6 hours for the next 4 weeks, and then discontinue. 13. Lasix 40 mg p.o. daily p.r.n. for edema. 14. Invokana 1 tablet oral daily. 15. DuoNeb 3 mL inhaled every 4 to 6 hours p.r.n. for shortness of breath. DISCHARGE DIET: An 1800-ADA diet. ACTIVITY: As tolerated. FOLLOWUP INSTRUCTIONS: The patient will need to follow up with Dr. Grissom in 3 months. The patient will also need to follow up with Dr. Avelino Saeed in 4 weeks. The patient will need to follow up with Dr. Gann in 2 weeks. cc: Raine Downing MD [facility]
[2017-02-17] MEDS: ULTRAM PO PRN ×2 (13:00→20:42)
--- NOTE | 2017-02-17 17:29 | PROGRESS NOTE ---
DATE: 02/17/2017 SUBJECTIVE: The patient states that he slept well last night. He has no complaints today. OBJECTIVE: Vital signs: Temperature 98 degrees, blood pressure 112/64, heart rate 118, respirations 18, O2 saturations 94% on 3 L nasal cannula. General: This is an elderly male, lying in bed, in no acute distress. Head: Normocephalic, atraumatic. Heart: S1, S2. Normal. Tachycardic. Lungs: Clear to auscultation bilaterally. No crackles. No rales. Abdomen: Positive bowel sounds. Soft, nontender, nondistended. Extremities: No edema. No cyanosis. Neurologic: The patient is alert and oriented x3. LABORATORY: White blood cell count 7.4, hemoglobin 7, hematocrit 25, platelets 386,000. Reticulocyte count 3.2, sodium 137, potassium 3.7, chloride 97, BUN 24, creatinine 1 glucose 151. ASSESSMENT AND PLAN: 1. Encephalopathy. Resolved. 2. Insomnia. Improved. Continue on Zyprexa at this time. 3. Gastrointestinal bleed secondary to a large duodenal ulcer. Continue on Carafate and Protonix. 4. Constipation. Continue with scheduled laxative therapy. 5. Polymyalgia rheumatica. Continue on scheduled prednisone. 6. Vitamin D deficiency. Continue on vitamin D replacement. 7. Vitamin B12 deficiency. Continue on vitamin B12 replacement. 8. Peripheral edema, improved. The patient received albumin yesterday. 9. Iron deficiency anemia. Continue with iron supplementation. The patient's hemoglobin and hematocrit did drop. We will transfuse the patient with 2 units of packed red blood cells. 10. Disposition. We will plan to discharge the patient to rehab tomorrow. 11. Continue with physical therapy. 12. The plan of care was discussed with the patient and his son at the bedside. cc: MD SHAVONNE Swartz
[2017-02-17] MEDS: ZYPREXA ZYDIS PO SCH (20:42)
[2017-02-18] MEDS: HUMALOG SUBQ SCH ×3 (01:22→11:23)
[2017-02-18] MEDS: CARAFATE LIQUID PO SCH ×2 (01:23→08:08)
[2017-02-18] MEDS: ULTRAM PO PRN ×2 (03:09→12:38)
[2017-02-18 05:28] LABS: HEMATOCRIT 29.8 % (42.0-52.0); HEMOGLOBIN 9.1 g/dL (14.0-18.0)
[2017-02-18] MEDS: MIRALAX PO SCH (08:08)
[2017-02-18] MEDS: ICAR-C PO SCH (08:08)
[2017-02-18] MEDS: PREDNISONE PO SCH (08:08)
[2017-02-18] MEDS: CENTRUM SILVER PO SCH (08:08)
[2017-02-18] MEDS: VITAMIN B-12 PO SCH (08:08)
[2017-02-18] MEDS: KLOR-CON PO SCH (08:08)
[2017-02-18] MEDS: ALBUMIN 25% IV SCH (08:09)
[2017-02-18] MEDS: LASIX IV SCH (08:09)
[2017-02-18] MEDS ORDERED: DULCOLAX PR SCH (09:00)
[2017-02-18 12:26] VITALS: BP 122/79
== END 2017-02-18 12:51 ==
LOC: P.ED 19:33 → SUATTDRO 19:42 → 3S 02-04 00:03 → SUATTDRO 02-04 00:03
PROVIDERS: ATTEND Internal Medicine